=== PATIENT | female | born 1940 | race Caucasian/White ===

== ENCOUNTER → 2021-08-22 13:03 | Outpatient (BNVA) | payer MEDICARE, SELFPAY | PROVIDERS: PCP Family Medicine; Referring Provider Family Medicine; Visit Provider Internal Medicine Cardiovascular Disease | DX: R00.2 Palpitations (principal); R07.89 Other chest pain; J45.909 Unspecified asthma, uncomplicated | CPT/HCPCS: 93005; 99202 ==

== ENCOUNTER → 2021-09-27 09:32 | Outpatient (BNVA) | payer MEDICARE, SELFPAY | PROVIDERS: PCP Internal Medicine; Visit Provider Internal Medicine Pulmonary Disease | DX: J45.909 Unspecified asthma, uncomplicated (principal); Z91.09 Other allergy status, other than to drugs and biological substances | CPT/HCPCS: 99202 ==

== ENCOUNTER 2022-05-01 11:04 | Outpatient (REF) | payer MEDICARE, SELFPAY ==
--- NOTE | 2022-05-01 11:59 | PFT_ITS ---
FLOWS: FEV1 109% of predicted at 1.66 L. FVC 104% of predicted at 2.15 L. FEV1 to FVC ratio of 0.77. No bronchodilator response. LUNG VOLUMES: Total lung capacity 113% of predicted at 5.05 L. Residual volume 121% of predicted at 2.72 L. Slow vital capacity 105% of predicted at 2.32 L. Expiratory reserve volume 48% of predicted at 0.15 L. Diffusion capacity is normal. IMPRESSION: No obstructive or restrictive ventilatory defect. Increased residual volume suggests air trapping. Decreased expiratory reserve volume suggests extrathoracic restriction, likely secondary to abdominal obesity. Jim Watson MD AP/MODL / [id number]
== END 2022-05-01 11:05 | disposition home or self-care (01) ==
LOC: HO.RESP 11:04
PROVIDERS: PCP Internal Medicine; Visit Provider Internal Medicine Pulmonary Disease
DX: J45.909 Unspecified asthma, uncomplicated (principal)
CPT/HCPCS: 94060; 94727; 94729

== ENCOUNTER → 2022-05-09 10:18 | Outpatient (BNVA) | payer MEDICARE, SELFPAY | PROVIDERS: PCP Internal Medicine; Visit Provider Internal Medicine Pulmonary Disease | DX: J45.909 Unspecified asthma, uncomplicated (principal); Z91.09 Other allergy status, other than to drugs and biological substances | CPT/HCPCS: 99212 ==

== ENCOUNTER → 2022-10-31 10:13 | Outpatient (BNVA) | payer MEDICARE, SELFPAY | PROVIDERS: PCP Internal Medicine; Visit Provider Internal Medicine Pulmonary Disease | DX: J45.40 Moderate persistent asthma, uncomplicated (principal); Z91.09 Other allergy status, other than to drugs and biological substances | CPT/HCPCS: 99212 ==

== ENCOUNTER 2023-06-17 10:23 | Outpatient (AMB) | payer MEDICARE, SELFPAY ==
--- NOTE | 2023-06-17 10:26 | MHC.OFFVIS ---
Intake Vital Signs 06/17/23 10:28 Height 5 ft 1 in Weight 154 lb 5.177 oz BMI 29.2 BP 140/64 H Blood Pressure Location Rt brachial Position Sitting Pulse 63 Pulse Oximetry (%) 100 Oxygen Delivery Method Room Air Intake Visit Reasons: Asthma Allergies No Known Allergies Allergy (Verified 06/17/23 10:32) HPI Asthma HPI Details 82-year-old lady, former minimal smoker, quit 40 years ago,? followed for moderate persistent asthma and environmental allergies with asthma after the last office visit patient was switched to Trelegy, however she has not received it in continue to use Advair with suboptimal control of his symptoms. She denies any recent exacerbations. [facility] Surgical History (Updated 08/22/21 @ 13:24 by ARA Ulloa) H/O eye surgery Family History (Updated 08/22/21 @ 13:25 by ARA Ulloa) Mother Alzheimer disease Diabetes Father Diabetes HTN (hypertension) Sister HTN (hypertension) Diabetes Brother No problems noted. Social History (Updated 08/22/21 @ 13:25 by ARA Ulloa) Alcohol intake: never Patient Tobacco Use Status: Former Tobacco user Quit Date: 1989 Smoked: 15 +/- Review of Systems Const Denies daytime sleepiness, Denies excessive sweating, Denies fatigue, Denies fever(s), Denies lethargy, Denies malaise, Denies night sweats, Denies snoring and Denies weight loss Eyes Denies blurry vision and Denies itchy eyes ENT Denies nasal congestion, Denies post nasal drip, Denies sinus pain, Denies sinus pressure and Denies other ( Thrush) Card Denies chest pain, Denies pedal edema, Denies dyspnea, Denies orthopnea and Denies paroxysmal nocturnal dyspnea Resp Denies cough, Denies hemoptysis, Denies excessive phlegm production, Denies dyspnea, Denies snoring and Denies wheezing GI Denies abdominal pain and Denies heartburn Musc Denies myalgias, Denies arthralgias and Denies joint swelling Skin/Breast Denies rash Neuro Denies memory loss and Denies seizure-like activity Psych Denies abnormal sleep pattern, Denies anxiety and Denies memory loss Endo Denies excessive sweating, Denies fatigue and Denies heat intolerance Conor/Lymph Denies easy bruising Aller/Immun Denies itchy eyes, Denies seasonal rhinorrhea and Denies wheezing Physical Exam Vital Signs: Last Vital Signs Pulse 63 06/17/23 10:28 BP 140/64 H 06/17/23 10:28 Pulse Ox 100 06/17/23 10:28 Oxygen Delivery Method Room Air 06/17/23 10:28 BMI result Body Mass Index 29.2 Const General: no acute distress and alert Nutritional Appearance: not obese Orientation/consciousness: Other orientation findings ( oriented) HEENT Head: Yes atraumatic Eyes General: appearance normal, both eyes and all related structures Sclerae: sclerae normal EOM: EOMs intact bilaterally Neck Neck: Yes supple Lymphatic: no lymphadenopathy noted Resp Effort & Inspection: normal respiratory effort and no use of accessory muscles Auscultation: clear to auscultation bilaterally Cardio Rate: regular rate Rhythm: regular rhythm Heart sounds: no gallops, no murmurs and no rubs Skin General skin exam: other ( warm) Extrem General: No clubbing, No cyanosis and No edema Assessment & Plan Assessment & Plan (1) Asthma: Code(s): J45.909 - Unspecified asthma, uncomplicated Plan: Suboptimally controlled on Advair. Switch to Trelegy. Continue albuterol MDI. (2) Environmental allergies: Code(s): Z91.09 - Other allergy status, other than to drugs and biological substances Plan: Controlled on Singulair and loratadine. Continue current regimen. Medications: Refilled dgxigexgeft-eohabygdx-xgljdfsg 200-62.5-25 mcg (Trelegy Ellipta) 1 inh inhalation DAILY 1 ea 6RF 30 days Coding Level of Care Code Est Pt Level 4 (56985) Diagnoses Asthma J45.909 Environmental allergies Z91.09
[2023-06-17 10:28] VITALS: BP 140/64; PULSE 63; O2SAT 100; BMI 29.2
== END 2023-06-17 10:54 | disposition home or self-care (01) ==
PROVIDERS: PCP Internal Medicine; Visit Provider Internal Medicine Pulmonary Disease
DX: J45.909 Unspecified asthma, uncomplicated (principal); Z91.09 Other allergy status, other than to drugs and biological substances
CPT/HCPCS: 99214

== ENCOUNTER → 2023-06-17 10:23 | Outpatient (BNVA) | payer MEDICARE, SELFPAY | PROVIDERS: Visit Provider Internal Medicine Pulmonary Disease | DX: J45.909 Unspecified asthma, uncomplicated (principal); Z91.09 Other allergy status, other than to drugs and biological substances | CPT/HCPCS: 99212 ==

== ENCOUNTER 2023-10-09 11:42 | Outpatient (REF) | payer MEDICARE, SELFPAY ==
[2023-10-09 15:16] LABS: Alanine Aminotransferase 16 U/L (0-31); Albumin Level 3.6 g/dL (3.5-5.0); Alkaline Phosphatase 84 U/L (39-117); Anion Gap 13 (12-20); Aspartate Amino Transferase 19 U/L (5-31); Bilirubin Total 0.5 mg/dL (0.0-1.0); Blood Urea Nitrogen 23 mg/dL (9-16); Calcium 9.6 mg/dL (8.4-10.2); Carbon Dioxide 24 mmol/L (22-29); Chloride 108 mmol/L (96-108); Cholesterol 124 mg/dL (<200); Estimated Glomerular Filt Rate 47; Glucose Fasting 166 mg/dL (60-99); HDL Cholesterol 50 mg/dL (>40); LDL Cholesterol Calculated 61 mg/dL (<100); Potassium 4.7 mmol/L (3.3-5.1); Sodium 140 mmol/L (135-145); Total Protein 7.7 g/dL (6.5-8.0); Triglycerides 69 mg/dL (<150)
[2023-10-09 15:32] LABS: TSH reflex Free T4 3.81 uIU/mL (0.32-4.0)
== END 2023-10-09 11:43 | disposition home or self-care (01) ==
LOC: HO.CHCLDS 11:42
PROVIDERS: Visit Provider Internal Medicine
DX: E11.65 Type 2 diabetes mellitus with hyperglycemia (principal); Z79.4 Long term (current) use of insulin
CPT/HCPCS: 36415; 80053; 80061; 84443

== ENCOUNTER 2024-12-07 10:50 | Outpatient (AMB) | payer MEDICARE, SELFPAY ==
[2024-12-07 10:55] VITALS: BP 116/78; PULSE 72
--- NOTE | 2024-12-07 10:55 | A.OFFVIS_ITS ---
Vital Signs 12/07/24 10:55 Height 5 ft 1 in BMI Reason not done Patient refused/unable BP 116/78 Blood Pressure Location Rt brachial Position Sitting Pulse 72 Pulse Source Pulse Oximeter Intake Visit Reasons: Type 2 DM Intake Note: NEW Patient presents today to establish treatment for Type 2 Diabetes Mellitus: Last Diabetic eye exam was on: 06/18/2024 Last Podiatry exam was on: Patient does not see a Turf Grower Most recent HbA1c: DUE Random Glucose- 304 mg/dL, Today Art Framing Manager Required: No Art Framing Manager Name: Son Accompanied by: Self / Same As Patient Allergies No Known Allergies Allergy (Verified 12/07/24 10:56) [facility] Surgical History (Updated 08/22/21 @ 13:24 by ARA Ulloa) H/O eye surgery Family History (Updated 08/22/21 @ 13:25 by ARA Ulloa) Mother Alzheimer disease Diabetes Father Diabetes HTN (hypertension) Sister HTN (hypertension) Diabetes Brother No problems noted. Social History (Updated 08/22/21 @ 13:25 by ARA Ulloa) Alcohol intake: never Patient Tobacco Use Status: Former Tobacco user Years Smoked: 15 +/- Physical Exam Vital Signs: Last Vital Signs Pulse 72 12/07/24 10:55 BP 116/78 12/07/24 10:55 Results Reviewed Results Reviewed: Laboratory Last Values Glucose (Clinic) 304 mg/dL (60-115) H 12/07/24 11:13 Assessment & Plan Assessment & Plan Orders: Orders AMB Hemoglobin A1c Today E11.9 - Type 2 diabetes mellitus without complications Coding
--- NOTE | 2024-12-07 11:02 | A.OFFVIS_ITS ---
Vital Signs 12/07/24 10:55 Height 5 ft 1 in BMI Reason not done Patient refused/unable BP 116/78 Blood Pressure Location Rt brachial Position Sitting Pulse 72 Pulse Source Pulse Oximeter Intake Visit Reasons: Type 2 DM Intake Note: NEW Patient presents today to establish treatment for Type 2 Diabetes Mellitus: Last Diabetic eye exam was on: 06/18/2024 Last Podiatry exam was on: Patient does not see a Mast Maker Most recent HbA1c: 7.9%, 12/07/2024 Random Glucose- 304 mg/dL, Today Hyperbaric Tech Required: No Accompanied by: Son Allergies No Known Allergies Allergy (Verified 12/07/24 10:56) HPI Comments Details: Son in law used for hematology nurse. [age] YO female who is seen in consultation for TDM at the request of PCP. Most recent A1C 12/07/24 7.9% 8.4% 09/2024. Initially diagnosed with T2DM in her 40's, had pre diabetes in her 30's Was initially started on treatment with oral agents then changed to mdi Current regimen VGO 20 insulin patch pump Humalog brk 2 clicks lunch 3 clicks supper 3 clicks snack 1 click Checks sugars 3 times daily avg 276 Has one low of 38 when she accidentally took 2 sets of 2 clicks for breakfast numbers in reasonable range throughout the day each night consistently over 300 before bedtime. Reports low sugars had one this two week period after accidentally taking 2 dose of insulin Treats lows with oj Family history of T2DM in mother, father, sibling No retinopathy:Has eyes checked yearly, last eye exam 05/2024 Has neuropathy, has tingling no pain or cramping sees podiatry no nephropathy, on MALISSA microalbumin 3.0 Denies HLD, not on statin. Last LDL [] as measured on []. Denies CAD. Has tremors Diet: Balanced Weight: stable Has had diabetes education. [facility] Medical History (Updated 12/07/24 @ 11:41 by Angela Altamirano NP) Type 2 diabetes mellitus Surgical History (Updated 08/22/21 @ 13:24 by ARA Ulloa) H/O eye surgery Family History (Updated 08/22/21 @ 13:25 by ARA Ulloa) Mother Alzheimer disease Diabetes Father Diabetes HTN (hypertension) Sister HTN (hypertension) Diabetes Brother No problems noted. Social History (Updated 08/22/21 @ 13:25 by ARA Ulloa) Alcohol intake: never Patient Tobacco Use Status: Former Tobacco user Years Smoked: 15 +/- Physical Exam Vital Signs: Last Vital Signs Pulse 72 12/07/24 10:55 BP 116/78 12/07/24 10:55 Absence of Cushingoid features. Absence of acromegalic features. Neck exam reveals nl size thyroid about 15 gms. No thyroid nodules palpable. No carotid bruits present. Lungs CTA. Heart S1 S2, Reg R/R. No M/R/ G. Skin exam reveals absence of vitiligo or acanthosis nigricans. Abdominal exam reveals Soft NT/ND with NA BS. No organomegaly present. Const Other: Absence of Cushingoid features. Absence of acromegalic features. Neck exam reveals nl size thyroid about 15 gms. No thyroid nodules palpable. Heart S1 S2, Reg R/R. No M/R G. Skin exam reveals absence of vitiligo or acanthosis nigricans. tremor intermittent left arm Visual exam of foot performed. No ulcerations or open lesions. No inter digit maceration or fissuring. No onychomycosis, no callouses. Sensation intact to monofilament exam. Vibratory sensation is normal with 128 Hz tuning fork. good cap refill Neck Other: . Extrem Other: Visual exam of foot performed. No ulcerations or open lesions. No onchomycosis, no callouses.Pulses 2 + distally Sensation intact to monofilament exam. Vibratory sensation sensed is intact with 128 Hz tuning fork Results AMB Hemoglobin A1c AMB Hemoglobin A1c 7.9 % Last Edit by ARA Mo on 12/07/24 11:24 Results Reviewed Results Reviewed: Laboratory Last Values Glucose (Clinic) 304 mg/dL (60-115) H 12/07/24 11:13 Hgb A1c (Clinic) 7.9 % (4.0-6.0) H 12/07/24 11:00 Assessment & Plan Assessment & Plan (1) Type 2 diabetes mellitus: Code(s): E11.9 - Type 2 diabetes mellitus without complications Category: Medical Plan: 84-year-old type 2 diabetic on a V-Go patch pump. Glucose readings before bedtime are consistently above 300. Continue same dose of medication with the exception of take 4 clicks of insulin was supper instead of 3. Importance of not dosing twice before the meal. She reports she had never done this in the past. Recommended glucose sensor which she declined The patient had an opportunity to ask questions regarding treatment plan. The patient expressed understanding and agreement with the above treatment plan. The patient is aware they should contact our office by phone for worsening glucose readings or for any low blood sugars which may warrant a change in diabetes medication. Compliance is encouraged with medications and any followup testing/consults which may have been ordered. Orders: Orders AMB Hemoglobin A1c Today E11.9 - Type 2 diabetes mellitus without complications Patient Instructions: Check your feet daily looking for any signs of infection, drainage, redness, ulceration and seek medical attention if this occurs. Break in shoes gradually and do not wear open-toed shoes or walk stocking footed or barefooted. Take 15 carb carbohydrate grams to treat a low sugar (3-4 glucose tablets, half a glass of juice or 15 carbohydrate grams of soft candy such as gummie snacks). Recheck your sugar in 15 minutes and re-treat again with 15 carbohydrate grams if low or still with symptoms. Do not drive a car or operate machinery if you do not know what your blood sugar is, if it is low or in excess of 300. Coding Level of Care Code New Pt Level 5 (05685) Complex EM visit Add On G2211 Diagnoses Type 2 diabetes mellitus E11.9 Time Spent (min) 45 Comment Time spent reviewing labs/provider notes, face to face, chart doc
[2024-12-07 11:18] LABS: Glucose, Whole Blood 304 mg/dL (60-115)
--- OUTSIDE RECORDS SUMMARY | 2024-12-07 12:07 | XMS_ITS | Encounter Summary ---
Author Organization [employer] Address [address] [place] [address] 7 [place] [address] Care Team Providers Care Antenna Rigger Name Role Phone Bob Ricks MD Primary Care Prov ider Reason for Visit * Reason Comments Med Refill Encounter Details Date Type Department Care Team ([facility] st Contact Info) Description 03/13/2023 Refill [facility] CHC MED & PEDS [address] [place], [place] [phone] Bob Ricks MD [address] [place] [address] Social History Tobacco Use Types Packs/Day Years Used Date Smoking Tobacco: Never Assessed Depression Answer Date Recorded Patient Health Questionnaire-9 Score 6 02/07/2023 Depression Answer Date Recorded Patient Health Questionnaire-2 Score 6 02/07/2023 Comments Unknown Sex and Gender Information Value Date Recorded Sex Assigned at Female 08/26/2022 10:36 AM EDT Legal Sex Female 10:36 AM EDT Gender Identity Female 08/26/2022 10:36 AM EDT Sexual Orientation Straight 08/26/2022 10 :36 AM EDT documented as of this encounter Miscellaneous Notes * Telephone Encounter - Geraldine Whatley LPN - 03/27/2023 2:52 PM EDT documented in this encounter Plan of Treatment Not on file documented as of this encounter Visit Diagnoses Not on filedocumented in this encounter Additional Health Concerns Assessment Noted Time PHQ-9 Depression Total Score: 6 02/08/20 10:49 AM EDT documented as of this encounter Care Teams Antenna Rigger Relationship Specialty Start Date End Date Bob Ricks MD [address] [place] [id number] PCP - General Internal Medicine 11/18/19 documented as of this encounter
--- OUTSIDE RECORDS SUMMARY | 2024-12-07 12:07 | XMS_ITS | Encounter Summary ---
Author Organization [employer] Address [address] [facility] 7t [place] [address] Care Team Providers Care Cloth Designer Name Role Phone Bob Ricks MD Primary Care Prov ider Encounter Details Date Type Department Care Team (Latest Contact Info) Description 11/24/2024 Travel Social History Tobacco Use Types Packs/Day Years Used Date Smoking Tobacco: Former Cigarettes 1955 Smokeless Tobacco: Never Alcohol Use Standard Drinks/Week Comments Never 0 (1 standard drink = 0.6 oz pur e alcohol) Depression Answer Date Recorded Patient Health Questionnaire-9 Score 6 02/07/2023 Housing Stability Answer Date Recorded What is your housing situation today? I have francoise be 08/11/[address] you li ve. Do you have problems with any of the following? None of the above 08/11/2023 Food Insecurity Answer Date Recorded Within the past 12 months, y ou worried that your food would run out before you got money to buy more: Never True 08/11/2023 Within the past 12 months,th e food you bought just didn't last and you didn't have enough money to get more: Never True Transportation Answer Date Recorded In the past 12 months, has l ack of transportation kept you from medical appts, meetings, work or from getting things needed for daily living? No 08/11/2023 Utilities Answer Date Recorded In the past 12 months, has t he electric, gas, oil or water company threatened to shut off services in your home? No 08/11/2023 Depression Answer Date Recorded Patient Health Questionnaire-2 Score 6 02/07/2023 Comments Unknown Sex and Gender Information Value Date Recorded Sex Assigned at Female 08/26/2022 10:36 AM EDT Legal Sex Female 10:36 AM EDT Gender Identity Female 08/26/2022 10:36 AM EDT Sexual Orientation Straight 08/26/2022 10 :36 AM EDT documented as of this encounter Plan of Treatment Not on file documented as of this encounter Visit Diagnoses Not on filedocumented in this encounter Additional Health Concerns Assessment Noted Time PHQ-9 Depression Total Score: 6 02/08/20 23 10:49 AM EDT documented as of this encounter Care Teams Cloth Designer Relationship Specialty Start Date End Date Bob Ricks MD [address] [place] [id number] PCP - General Internal Medicine 11/18/19 documented as of this encounter
--- OUTSIDE RECORDS SUMMARY | 2024-12-07 12:07 | XMS_ITS | Encounter Summary ---
Author Organization [employer] Address [address] [facility] 7t [place] [address] Care Team Providers Care Steel Post Installer Name Role Phone Bob Ricks MD Primary Care Prov ider Encounter Details Date Type Department Care Team ([facility] st Contact Info) Description 12/19/2023 Orders Only [facility] CHC MED & PEDS [address] [place], [place] [phone] Bob Ricks MD [address] [place], [place] [phone] Social History Tobacco Use Types Packs/Day Years [...] on file documented as of this encounter Procedures Procedure Name Priority Date/Time Associated Diagnosis Comments GLUCOSE, WHOLE BLOOD Routine 12/07/2024 11:13 AM EST documented in this encounter Results * (ABNORMAL) Glucose, Whole Blood (12/07/2024 11:13 AM EST) Glucose, Whole Blood 304(H) 60 - 115 mg/dL [facility] Comment:METER #: [id number] 5Testing performed in the Endocrinology Department [address] , [address], [facility]. 12/07/2024 11:1 3 AM EST 12/07/2024 11:17 AM EST us Generic External Data Provider LAB BLOOD ORDERAB LES Final Result [facility] [address] [place] [address] [phone] documented in this encounter Visit Diagnoses Not on filedocumented in this encounter Additional Health Concerns Assessment Noted Time PHQ-9 Depression Total Score: 6 02/08/20 23 10:49 AM EDT documented as of this encounter Care Teams Steel Post Installer Relationship Specialty Start Date End Date Bob Ricks MD [address] [place] [id number] PCP - General Internal Medicine 11/18/19 documented as of this encounter
--- OUTSIDE RECORDS SUMMARY | 2024-12-07 12:07 | XMS_ITS | Encounter Summary ---
Author Organization [employer] Address [address] [place] [address] 7 [place] [address] Care Team Providers Care Decision Support Analyst Name Role Phone Bob Ricks MD Primary Care Prov ider Reason for Visit * Reason Comments Med Refill Encounter Details Date Type Department Care Team ([facility] st Contact Info) Description 06/10/2023 Refill [facility] CHC MED & PEDS [address] [place] [address] Bob Ricks MD [address] [place] [address] Social History Tobacco Use Types Packs/Day Years [...] documented as of this encounter Care Teams Decision Support Analyst Relationship Specialty Start Date End Date Bob Ricks MD [address] [place] [address] PCP - General Internal Medicine 11/18/19 documented as of this encounter
--- OUTSIDE RECORDS SUMMARY | 2024-12-07 12:07 | XMS_ITS | Encounter Summary ---
Author Organization [employer] Address [address] [facility] 7 [place] [address] Care Team Providers Care Estimator Paperboard Boxes Name Role Phone Bob Ricks MD Primary Care Prov ider Reason for Visit * Reason Comments Med Refill Encounter Details Date Type Department Care Team ([facility] st Contact Info) Description 11/09/2024 Refill [facility] CHC MED & PEDS [address] [place], [place] [phone] Bob Ricks MD [address] [place] [address] Social History Tobacco Use Types Packs/Day Years [...] documented as of this encounter Care Teams Estimator Paperboard Boxes Relationship Specialty Start Date End Date Bob Ricks MD [address] [place] [id number] PCP - General Internal Medicine 11/18/19 documented as of this encounter
--- OUTSIDE RECORDS SUMMARY | 2024-12-07 12:07 | XMS_ITS | Encounter Summary ---
Author Organization [employer] Address [address] [facility] 7t [place] [address] Care Team Providers Care Mica Miner Name Role Phone Bob Ricks MD Primary Care Prov ider Reason for Visit * Reason Comments Med Refill Encounter Details Date Type Department Care Team ([facility] st Contact Info) Description 10/18/2024 Refill [facility] CHC MED & PEDS [address] [place], [place] [phone] Bob Ricks MD [address] [place] [address] Primary hypertension Social History Tobacco Use Types Packs/Day Years [...] documented as of this encounter Visit Diagnoses Diagnosis Primary hypertension Unspecified essential hypertension documented in this encounter Additional Health Concerns Assessment Noted Time PHQ-9 Depression Total Score: 6 02/08/20 23 10:49 AM EDT documented as of this encounter Care Teams Mica Miner Relationship Specialty Start Date End Date Bob Ricks MD [address] [id number] PCP - General Internal Medicine 11/18/19 documented as of this encounter
--- OUTSIDE RECORDS SUMMARY | 2024-12-07 12:07 | XMS_ITS | Encounter Summary ---
Author Organization [employer] Address [address] [place] [address] 7 [place] [address] Care Team Providers Care Youth Agent Name Role Phone Bob Ricks MD Primary Care Prov ider Reason for Visit * Reason Comments Med Refill Encounter Details Date Type Department Care Team ([facility] st Contact Info) Description 06/29/2023 Refill [facility] CHC MED & PEDS [address] [place] [address] Bob Ricks MD [address] [place] [address] Social History Tobacco Use Types Packs/Day Years [...] documented as of this encounter Care Teams Youth Agent Relationship Specialty Start Date End Date Bob Ricks MD [address] [place] [address] PCP - General Internal Medicine 11/18/19 documented as of this encounter
--- OUTSIDE RECORDS SUMMARY | 2024-12-07 12:07 | XMS_ITS | Encounter Summary ---
Author Organization [employer] Address [address] [facility] 7t [place] [address] Care Team Providers Care Forming Yardage Control Operator Name Role Phone Bob Ricks MD Primary Care Prov ider Reason for Visit * Reason Onset Date Comments Appointment Request 09/10/2023 Encounter Details Date Type Department Care Team ([facility] Contact Info) Description 09/10/2023 Telephone [facility] [address] [place] [address] Bob Ricks MD [address] [place] [address] Appointment Request Social History Tobacco Use Types Packs/Day Years [...] encounter Miscellaneous Notes * Telephone Encounter - Pepper Nunes - 09/10/2023 9:53 AM EST Tc from daughter requesting PE appt, senior copywriter ask daughter and no concerns at the moment with health. Please call daughter for appt [phone] Yoruba speaker documented in this encounter Plan of Treatment Not on file documented as of this encounter Visit Diagnoses Not on filedocumented in this encounter Additional Health Concerns Assessment Noted Time PHQ-9 Depression Total Score: 6 02/08/20 23 10:49 AM EDT documented as of this encounter Care Teams Forming Yardage Control Operator Relationship Specialty Start Date End Date Bob Ricks MD [address] [place] [id number] PCP - General Internal Medicine 11/18/19 documented as of this encounter
--- OUTSIDE RECORDS SUMMARY | 2024-12-07 12:07 | XMS_ITS | Encounter Summary ---
Author Organization [employer] Address [address] [facility] 7t [place] [address] Care Team Providers Care Cabbage Salter Name Role Phone Bob Ricks MD Primary Care Prov ider Reason for Visit * Reason Comments Med Refill Encounter Details Date Type Department Care Team ([facility] st Contact Info) Description 08/04/2023 Refill [facility] MED & PEDS [address] [place], [place] [phone] Bob Ricks MD [address] [place] [address] Social History Tobacco Use Types Packs/Day Years Used Date Smoking Tobacco: Never Assessed Depression Answer Date Recorded Patient Health Questionnaire-9 Score 6 02/07/2023 Housing Stability Answer Date Recorded What is your housing situation today? I have francoise be 08/04/[address] you li ve. Do you have problems with any of the following? None of the above 08/04/2023 Food Insecurity Answer Date Recorded Within the past 12 months, y ou worried that your food would run out before you got money to buy more: Never True 08/04/2023 Within the past 12 months,th e food you bought just didn't last and you didn't have enough money to get more: Never True 06/2023 Transportation Answer Date Recorded In the past 12 months, has l ack of transportation kept you from medical appts, meetings, work or from getting things needed for daily living? No 08/04/2023 Utilities Answer Date Recorded In the past 12 months, has t he electric, gas, oil or water company threatened to shut off services in your home? No 08/04/2023 Depression Answer Date Recorded Patient Health Questionnaire-2 [...] documented as of this encounter Care Teams Cabbage Salter Relationship Specialty Start Date End Date Bob Ricks MD [address] [place] [id number] PCP - General Internal Medicine 11/18/19 documented as of this encounter
--- OUTSIDE RECORDS SUMMARY | 2024-12-07 12:07 | XMS_ITS | Encounter Summary ---
Author Organization [employer] Address [address] [facility] 7 [place] [address] Care Team Providers Care Abattoir Supervisor Name Role Phone Bob Ricks MD Primary Care Prov ider Reason for Referral * Consultation (Routine) - Authorized Specialty Diagnoses / Procedures Referred By Contac t Referred To Contact Endocrinology Diagnoses Type 2 diabetes mellitus with hyperglycemia, with long-term current use of insulin (CMS/HCC) Bob Ricks MD [address] [place] [address] Phone: tel: fax: [facility] [address] [place] [address] Phone: tel: fax: Referral ID Status Reason Start Date Expiration Date Visits Requested Visits Authorized [id number] Authorized Specialty Services Required 11/24/2024 11/24/2025 1 1 Encounter Details Date Type Department Care Team (Late st Contact Info) Description 11/24/2024 11:30 AM EST Telemedicine [facility] CHC MED & PEDS [address] [place] [address] Bob Ricks MD [address] [place] [address] Type 2 diabetes mellitus with peripheral neuropathy (CMS/HCC) (Primary Dx); Type 2 diabetes mellitus with hyperglycemia, with long-term current use of insulin (CMS/HCC); Primary hypertension Social History Tobacco Use Types Packs/Day Years Used Date Smoking Tobacco: Former Cigarettes 1 5 - 1954 Smokeless Tobacco: Never Alcohol Use Standard [...] AM EDT documented as of this encounter Last Filed Vital Signs Vital Sign Reading Time Taken Comments Blood Pressure 135/85 11/24/2024 1:58 PM EST Pulse 70 11/24/2024 1:58 PM EST Temperature - - Respiratory Rate - - Oxygen Saturation - - Inhaled Oxygen Concentration - - Weight - - Height - - Body Mass Index - - documented in this encounter Progress Notes * Bob Lafleur MD - 11/24/2024 11:30 AM EST Subjective Patient ID: Aparna Garcia is a 84 y.o. female who presents for No chief complaint on file.. Hypertension This is a chronic problem. Pertinent negatives include no chest pain, headaches, palpitations, peripheral edema or shortness of breath. Review of Systems Respiratory: Negative for shortness of breath. Cardiovascular: Negative for chest pain and palpitations. Neurological: Negative for headaches. Objective Physical Exam Neurological: General: No focal deficit present. Mental Status: She is oriented to person, place, and time. Psychiatric: Mood and Affect: Mood normal. Behavior: Behavior normal. Assessment/Plan Problem List Items Addressed This Visit Primary hypertension Controlled, continue lisinopril 20mg and diltiazem, keep low sodium diet, keep bp log, follow up in3 months Type 2 diabetes mellitus with hyperglycemia, with long-term current use of insulin ([facility]) On insulin pump, the endocrinology office she was attending is no longer accepting her insurance will send new referral Relevant Orders Referral to Endocrinology Type 2 diabetes mellitus with peripheral neuropathy ([facility]) - Primary documented in this encounter Miscellaneous Notes * Assessment & Plan Note - Bob Lafleur MD - 11/24/2024 1:58 PM ESTAssociated Problem(s): Type 2 diabetes mellitus with hyperglycemia, with long-term current use of insulin ([facility]) On insulin pump, the endocrinology office she was attending is no longer accepting her insurance will send new referral * Assessment & Plan Note - Bob Lafleur MD - 11/24/2024 1:57 PM ESTAssociated Problem(s): Primary hypertension Controlled, continue lisinopril 20mg and diltiazem, keep low sodium diet, keep bp log, follow up in3 months documented in this encounter Plan of Treatment Scheduled Referrals Name Type Priority Associated Diagnoses Order Schedule Referral to Endocrinology Outpatient Referral Routine Type 2 diabetes mellitus with hyperglycemia, with long-term current use of insulin (CMS/HCC) Expected: 11/24/2024 (Approximate), Expires: 11/24/2025 documented as of this encounter Visit Diagnoses Diagnosis Type 2 diabetes mellitus with peripheral neuropathy ([facility])- Primary Type 2 diabetes mellitus with hyperglycemia, with long-term current use of insulin ([facility]) Primary hypertension Unspecified essential hypertension documented in this encounter Additional Health Concerns Assessment Noted Time PHQ-9 Depression Total Score: 6 02/08/20 23 10:49 AM EDT documented as of this encounter Care Teams Abattoir Supervisor Relationship Specialty Start Date End Date Bob Ricks MD [address] [place] [id number] PCP - General Internal Medicine 11/18/19 documented as of this encounter
--- OUTSIDE RECORDS SUMMARY | 2024-12-07 12:07 | XMS_ITS | Clinical Summary ---
Author Organization [employer] Address [address] [facility] 7t [place] [address] Care Team Providers Care Sheet Metal Insulator Name Role Phone Bob Ricks MD Primary Care Prov ider Allergies No known active allergies Medications acetaminophen (Tylenol 8 Hour) 650 MG ER tablet Take 2 tablets by mouth every 8 (eight) hours. Active Calcium Carbonate-Vitam in D (Oyster Shell Calcium/D) 500-5 MG-MCG tablet Take 1 tablet by mouth in the morning. 11/18/19 Active cyanocobalamin (Vitamin B-12) 500 MCG tablet Take 1 tablet by mouth in the morning. Active fluticasone (Flonase Allergy Relief) 50 MCG/ACT nasal spray Administer 1-2 sprays into affected nostril(s) in the morning. 01/17/20 Active montelukast (Singulair) 10 MG tablet Take 1 tablet by mouth in the morning. 01/17/20 Active Multiple Vitamin (Multi-Vitamin) tablet Take 1 tablet by mouth in the morning. Active primidone (Mysoline) 50 MG tablet take 1/2 tablet by mouth at bedtime and increase weekly to 2 tablets at bedtime 01/17/20 22 Active FeroSul 325 (65 Fe) MG tabletIndicatio ns:Iron deficiency TAKE 1 TABLET(325 MG) BY MOUTH IN THE MORNING 90 tablet 3 03/09/20 24 Active aspirin 81 MG chewable tabletIndicatio ns:Primary hypertension CHEW AND SWALLOW 1 TABLET(81 MG) BY MOUTH IN THE MORNING 90 tablet 3 03/09/20 24 Active atorvastatin (Lipitor) 10 MG tablet TAKE 1 TABLET(10 MG) BY MOUTH IN THE MORNING 90 tablet 3 03/23/20 24 Active Advair HFA 230-21 MCG/ACT inhalerIndicati ons:Moderate persistent asthma without complication INHALE 2 PUFFS BY MOUTH TWICE DAILY IN THE MORNING AND IN THE EVENING 12 g 3 03/25/20 24 Active loratadine (Claritin) 10 MG tablet TAKE 1 TABLET BY MOUTH EVERY DAY 90 tablet 08/17/20 24 Active dilTIAZem CD (Cardizem CD) 120 MG 24 hr capsule TAKE 1 CAPSULE BY MOUTH EVERY DAY 90 capsule 1 11/01/19 25 Active omeprazole (PriLOSEC) [address] capsuleIndicati ons:Gastroesoph ageal reflux disease without esophagitis TAKE 1 CAPSULE(20 MG) BY MOUTH IN THE MORNING 90 capsule 11/01/19 25 Active lisinopril 20 MG tabletIndicatio ns:Primary hypertension TAKE 1 TABLET(20 MG) BY MOUTH DAILY 90 tablet 11/01/19 25 Active mirtazapine (Remeron) 15 MG tablet TAKE 1 TABLET BY MOUTH AT BEDTIME 90 tablet 11/01/19 25 Active albuterol 108 (90 Base) MCG/ACT inhaler INHALE 2 PUFFS INTO THE LUNGS EVERY 4 TO 6 HOURS NEEDED 8.5 g 1 11/09/19 25 Active albuterol 108 (90 Base) MCG/ACT inhaler INHALE 2 PUFFS INTO THE LUNGS EVERY 4 TO 6 HOURS NEEDED 8.5 g 1 07/22/20 24 025 Discontinued lisinopril 10 MG tabletIndicatio ns:Primary hypertension TAKE 1 TABLET(10 MG) BY MOUTH IN THE MORNING 90 tablet 08/17/20 24 025 Discontinued(T herapy completed) Active Problems Problem Noted Date Diagnosed Date Type 2 diabetes mellitus with peripheral neuropa thy 11/24/2024 Mixed stress and urge urinary incontinence 12/19 Assessment & Plan (12/19/2023 9:45 AM EST): Patient hx of mixed urine incontinence, she will benefit from rx for pull up diapers size medium, wipes and bed cover Left ear impacted cerumen 10/09/2023 Assessment & Plan (10/09/2023 12:28 PM EST): Will order debrox and will schedule a follow up with nurses in 1 week for ear lavage Osteopenia of multiple sites 10/09/2023 Assessment & Plan (10/09/2023 12:26 PM EST): Will order a dexa scan or follow up Primary hypertension 11/15/2022 Assessment & Plan (11/24/2024 1:57 PM EST): Controlled, continue lisinopril 20mg and diltiazem, keep low sodium diet, keep bp log, follow up in 3 months Assessment & Plan (03/23/2024 9:17 AM EDT): Not at target, will increase lisinopril to 20mg, keep bp log, keep low sodium diet, Patient reported a episode of chest pain yesterday, told her to visit er, she refused, risk were discussed, continue cardiology follow up Assessment & Plan (10/09/2023 12:23 PM EST): Controlled, reinforced low sodium diet, will leave on lisinopril 10mg and cardizem 120mg, keep bp monitoring Assessment & Plan (02/07/2023 1:43 PM EDT): Patient not monitoring her blood pressure daily, bp target <130/80, reinforced low sodium diet and exercise, lab order will be placed Assessment & Plan (11/15/2022 11:37 AM EST): Patient could not provide me today bp reading, she refers is controlled, but no bp log provided, reinforced low sodium diet Type 2 diabetes mellitus wit h hyperglycemia, with long-term current use of insulin 11/15/2022 Assessment & Plan (11/24/2024 1:58 PM EST): On insulin pump, the endocrinology office she was attending is no longer accepting her insurance will send new referral Assessment & Plan (03/23/2024 9:16 AM EDT): Followed by endocrinology, continue on v-go, last A1c elevated, insulin doise was increased on last endocrinology visit Eye exam done Assessment & Plan (10/09/2023 12:26 PM EST): Today A1c was 8.3% target <8.0%, she is on insulin pump, has endocrinology appointment on November, told to decrease daily carb intake, foot exam remarkable for bilateral mild onychomycosis and tinea, eye exam due in October they will arrange appointment. Assessment & Plan (02/07/2023 1:43 PM EDT): On insulin pump, followed by endocrinology, no changes will be made Assessment & Plan (11/15/2022 11:38 AM EST): On insulin pump, followed by endocrinology, reinforced low carb diet Mixed hyperlipidemia 11/15/2022 Assessment & Plan (10/09/2023 12:27 PM EST): New labs ordered for guidance of therapy Assessment & Plan (11/15/2022 11:38 AM EST): On statin therapy, has remained stable, no changes will be made Subclinical hypothyroidism 11/15/2022 Assessment & Plan (11/15/2022 11:39 AM EST): Will place order for labs for guidance of therapy Encounters Date Type Department Care Team Description 11/24/2024 11:30 AM EST Telemedicine [facility] CHC MED & PEDS [address] [place] [address] Bob Ricks MD Type 2 diabetes mellitus with peripheral neuropathy (CMS/HCC) (Primary Dx); Type 2 diabetes mellitus with hyperglycemia, with long-term current use of insulin (CMS/HCC); Primary hypertension 11/24/2024 Travel 11/23/2024 Telephone [facility] CH[facility] MED & PEDS [address] [place] [address] Bob Ricks MD chart prep 11/09/2024 Refill [facility] CH[facility] MED & PEDS [address] [place] [address] Bob Ricks MD 10/31/2024 Refill [facility] CH[facility] MED & PEDS [address] [place] [address] Bob Ricks MD Gastroesophageal reflux disease without esophagitis; Primary hypertension 10/30/2024 Refill [facility] CHC MED & PEDS [address] [place] [address] Lisa Hall MD 10/18/2024 Refill [facility] MED & PEDS [address] [place] [address] Bob Ricks MD Primary hypertension from Last 3 Months Immunizations Name Administration Dates Next Due Influenza High-dose Quadriva lent Preservative Free 10/09/2023,08/15/2022,08/17/2021 Influenza, High Dose Seasona l, Preservative Free 11/18/2019 Moderna Covid-19 Vaccine 12+ 10/23/2021,01/05/20 21,12/08/2020 Pneumococcal Conjugate PCV 20 10/09/2023 Tdap 11/18/2019 Zoster, Recombinant 08/15/2022 Social History Tobacco Use Types Packs/Day Years Used Date Smoking Tobacco: Former Cigarettes 1 - 1954 Smokeless Tobacco: Never Alcohol Use [...] Orientation Straight 08/26/2022 10 :36 AM EDT Last Filed Vital Signs Vital Sign Reading Time Taken Comments Blood Pressure 135/85 11/24/2024 1:58 PM EST Pulse 70 11/24/2024 1:58 PM EST Temperature 37.1 ??C (98.7 ??F) 10/09/2023 10:[address] Respiratory Rate 16 10/09/2023 10:47 AM EST Oxygen Saturation - - Inhaled Oxygen Concentration - - Weight 70.8 kg (156 lb) 10/09/2023 10:47 AM EST Height 151.8 cm (4' 11.75 ) 10/09/2023 10:47 AM EST Body Mass Index 30.72 10/09/2023 10:47 AM EST Plan of Treatment Health Maintenance Due Date Last Done Comments Eye Exam 1950 Alcohol/Substance Use Screening 1951 RSV Patients and Patients Aged 60 years or older (1 - 1-dose 75+ series) 2014 Zoster Vaccines (2 of 2) 10/10/2022 08/15/2022 Depression Screening 02/08/2024 02/07/2023, 02/08/20 23 SDOH Screening 02/08/2024 02/07/2023 Diabetes: Urine Protein Screening 04/21/2024 04/21/2023, 08/15/2022, 11/10/2020 COVID-19 Vaccine ( season) 2024 10/23/2021, 01/04/2021, 12/08/2020 Influenza Vaccine (#1) 2024 3, 08/15/2022, 08/17/2021, Additional history exists Diabetes: Hemoglobin A1C 09/14/2024 024, 03/10/2024, 10/09/2023, Additional history exists Diabetes: Foot Exam 10/09/2024 10/09/2023, 10/09/2023, 10/09/2023, Additional history exists Lipid Panel 10/09/2024 10/09/2023, 03/28, 08/15/2022, Additional history exists Tobacco Screening 03/23/2025 03/23/2024 DTaP/Tdap/Td Vaccines (2 - Td or Tdap) 11/18/2029 11/18/2019 Pneumococcal Vaccine: 50+ Years Completed 10/09/2023, 09/15/2020 HIB Vaccines Aged Out No longer eligi ble based on patient's age to complete this topic HPV Vaccines Aged Out No longer eligi ble based on patient's age to complete this topic Hepatitis A Vaccines Aged Out No long er eligible based on patient's age to complete this topic Hepatitis B Vaccines Aged Out No long er eligible based on patient's age to complete this topic IPV Vaccines Aged Out No longer eligi ble based on patient's age to complete this topic Meningococcal Vaccine Aged Out No alida himanshu eligible based on patient's age to complete this topic RSV under 20 months Aged Out No longe r eligible based on patient's age to complete this topic Rotavirus Vaccines Aged Out No longer eligible based on patient's age to complete this topic Procedures Procedure Name Priority Date/Time Associated Diagnosis Comments GLUCOSE, WHOLE BLOOD Routine 12/07/2024 11:13 AM EST LIPID PANEL, STANDARD Routine 10/09/2023 11:46 AM EST Type 2 diabetes mellitus with hyperglycemia, with long-term current use of insulin ([facility]) POCT GLYCATED HEMOGLOBIN, TOTAL Routine 10/09/2023 10:49 AM EST Type 2 diabetes mellitus with hyperglycemia, with long-term current use of insulin ([facility]) ALBUMIN, RANDOM URINE W/O CREATININE Routine 04/21/2023 10:58 AM EDT from Last 3 Months or Most Recently Relevant to Health Maintenance Results * (ABNORMAL) Glucose, Whole Blood (12/07/2024 11:13 AM EST) Glucose, Whole Blood 304(H) 60 - 115 mg/dL [facility] Comment:METER #: [id number] 5Testing performed in the Endocrinology Department [address], [address], [facility]. 12/07/2024 11:1 3 AM EST 12/07/2024 11:17 AM EST us Generic External Data Provider LAB BLOOD ORDERAB LES Final Result Performing Organization Address [facility]/ZIP Co de Phone Number [facility] [address] [place] [address] [phone] * Lipid Panel, Standard (10/09/2023 11:46 AM EST) Triglycerides 69 <150 mg/dL [facility] Comment:Desirable Triglyceri de: less than 150 mg/dLBorderline High Triglyceride 150-199 mg/dLHigh Triglyceride: 200-499 mg/dLVery High Triglyceride: greater than or equal to 5OO mg/dL Cholesterol 124 <200 mg/dL [facility] Comment:Desirable Cholestero l: less than 200 mg/dLBorderline High Cholesterol: 200-239 mg/dLHigh Cholesterol: greater than 239 mg/dL LDL Cholesterol Calculated 61 <100 mg/dL [facility] Comment:Desirable LDL: less than 100 mg/dLNear Optimal/Above Optimal LDL: 110- 129 mg/dLBorderline High LDL: 130-159 mg/dLHigh LDL: 160-189 mg/dLVery High LDL: greater than or equal to 190 mg/dL HDL Cholesterol 50 >40 mg/dL [facility] Comment:Desirable HDL: great er than 40 mg/dL Note: This HDL assay may give artificially low results in patients with liver disease. Blood Venous blood specimen / Unknown 10/09/2023 11:46 AM EST 10/09/2023 2:44 PM EST us Bob Lafleur MD LAB BLOOD ORDERABL ES Final Result Performing Organization Address [facility]/ZIP Co de Phone Number [facility] [address] [place] [address] [phone] * (ABNORMAL) POCT A1C (10/09/2023 10:49 AM EST) Hemoglobin A1C 8.3(A) 4.0 - 6.0 % QC Media Lot # [id number] Lot# Expiration Date Blood 10/09/2023 10:4 9 AM EST Bob Lafleur MD POINT OF CARE TEST ENTER/EDIT ORDERABLES Final Result * Albumin, Random Urine W/O Creatinine (04/21/2023 10:58 AM EDT) Albumin, Urine 8.2 See Note: mg/dL [facility] Comment: Reference Range: Reference Range Not established [facility] [place] [employer] Comment: The ADA defines abnormalities in albumin excretion as follows: Albuminuria Category ? Result (mcg/mg creatinine) Normal to Mildly increased ?<30 Moderately increased ?30-299 Severely increased ?> OR = 300 The ADA recommends that at least two of three specimens collected within a 3-6 month period be abnormal before considering a patient to be within a diagnostic category. 04/21/2023 10:5 8 AM EDT 04/21/2023 10:59 AM EDT Bob Lafleur MD LAB URINE ORDERABL ES Final Result [facility] [address] [place] [address] [employer] [place] [employer] [address] [place] [phone] from Last 3 Months or Most Recently Relevant to Health Maintenance Insurance [address] [place], [place] [id number]-SNP [facility] STANDARD Care Teams Sheet Metal Insulator Relationship Specialty Start Date End Date Bob Ricks MD [address] [place] [id number] PCP - General Internal Medicine 11/18/19
--- OUTSIDE RECORDS SUMMARY | 2024-12-07 12:07 | XMS_ITS | Encounter Summary ---
Author Organization [employer] Address [address] [facility] 7 [place] [address] Care Team Providers Care Job Setter Honing Name Role Phone Bob Ricks MD Primary Care Prov ider Reason for Visit * Reason Onset Date Comments chart prep 11/23/2024 Encounter Details Date Type Department Care Team ([facility] Contact Info) Description 11/23/2024 Telephone [facility] MED & PEDS [address] [place], [place] [phone] Bob Ricks MD [address] [place] [address] chart prep Social History Tobacco Use Types Packs/Day Years [...] encounter Miscellaneous Notes * Telephone Encounter - Phoebe Wagner MA - 11/23/2024 2:48 PM EST Chart Prep Labs: done Images: done Vaccines due: yes Referrals: complete Screenings: Foot Exam Overdue care gaps: A1C, Glucose, SDOH, PHQ-9 documented in this encounter Plan of Treatment Not on file documented as of this encounter Visit Diagnoses Not on filedocumented in this encounter Additional Health Concerns Assessment Noted Time PHQ-9 Depression Total Score: 6 02/08/20 23 10:49 AM EDT documented as of this encounter Care Teams Job Setter Honing Relationship Specialty Start Date End Date Bob Ricks MD [address] [place] [address] PCP - General Internal Medicine 11/18/19 documented as of this encounter
== END 2024-12-07 11:41 | disposition home or self-care (01) ==
PROVIDERS: PCP Internal Medicine; Visit Provider Nurse Practitioner Adult Health
DX: E11.9 Type 2 diabetes mellitus without complications (principal)
CPT/HCPCS: 99204; G2211

== ENCOUNTER → 2024-12-07 10:50 | Outpatient (BNVA) | payer MEDICARE, SELFPAY | PROVIDERS: PCP Internal Medicine; Visit Provider Nurse Practitioner Adult Health | DX: E11.9 Type 2 diabetes mellitus without complications (principal) | CPT/HCPCS: 82947; 83036; 99202 ==

== ENCOUNTER 2025-03-24 10:39 | Outpatient (AMB) | payer MEDICARE, SELFPAY ==
--- NOTE | 2025-03-24 08:01 | A.OFFVIS_ITS ---
Vital Signs 03/24/25 10:42 Height 5 ft 1 in BMI Reason not done Patient refused/unable BP 144/72 H Blood Pressure Location Rt brachial Position Sitting Pulse 60 Pulse Source Pulse Oximeter Oxygen Delivery Method Room Air Intake Visit Reasons: Type 2 DM Intake Note: Patient presents today for a follow-up on Type 2 Diabetes Mellitus: Last Diabetic eye exam was on: 06/18/2024 Last Podiatry exam was on: Patient does not see a Metal Window Screen Assembler Most recent HbA1c: 7.8%, 03/24/2025 Random Glucose- 139 mg/dL, Today Precision Dancer Required: Yes Precision Dancer Language: Sales And Management Trainee Services: Precision Dancer Offered & Declined Precision Dancer Name: SON Accompanied by: Son Allergies No Known Allergies Allergy (Verified 03/24/25 10:43) HPI Comments Details: Son in law used for sort operations supervisor. [age] YO female who is seen in consultation for TDM at the request of PCP. Most recent A1C 03/24/25: 12/07/24 7.9% 8.4% 09/2024. Initially diagnosed with T2DM in her 40's, had pre diabetes in her 30's Was initially started on treatment with oral agents then changed to mdi Current regimen VGO 20 insulin patch pump Humalog brk 2 clicks lunch 3 clicks supper 3 clicks snack 1 click Checks sugars 1-2 times daily Two [age] She was in the ER several days ago and had glucose readings of 400 because she did not use her V-Go to click for meals. She was treated for a bleeding hemorrhoid. Readings in the a.m. 108-207 later in the day in the 200s with a 1 low of 69 Treats lows with oj Family history of T2DM in mother, father, sibling No retinopathy:Has eyes checked yearly, last eye exam 05/2024 scheduled for this summer Has neuropathy, has tingling no pain or cramping except for chronic pain in ankle sees podiatry on a regular basis no nephropathy, on MALISSA microalbumin 3.0 05/2024 Denies HLD, not on statin. Last LDL ]67 several years ago Denies CAD. Has tremors Diet: Balanced Weight: stable Has had diabetes education. [facility] Medical History Type 2 diabetes mellitus Surgical History H/O eye surgery Family History Mother Alzheimer disease Diabetes Father Diabetes HTN (hypertension) Sister HTN (hypertension) Diabetes Brother No problems noted. Social History Alcohol intake: never Patient Tobacco Use Status: Former Tobacco user Years Smoked: 15 +/- Physical Exam Vital Signs: Last Vital Signs Pulse 60 03/24/25 10:42 BP 144/72 H 03/24/25 10:42 Oxygen Delivery Method Room Air 03/24/25 10:42 Const Other: Absence of Cushingoid features. Absence of acromegalic features. Neck exam reveals nl size thyroid about 15 gms. No thyroid nodules palpable. Heart S1 S2, Reg R/R. No M/R G. Skin exam reveals absence of vitiligo or acanthosis nigricans. No edema Visual exam of foot performed. No ulcerations or open lesions. No inter digit maceration or fissuring. No onychomycosis, no callouses. Sensation intact to monofilament exam. Vibratory sensation is normal with 128 Hz tuning fork. pulses positive Assessment & Plan Assessment & Plan (1) Type 2 diabetes mellitus: Code(s): E11.9 - Type 2 diabetes mellitus without complications Category: Medical Plan: 84-year-old with type 2 diabetes and neuropathy with the an A1c is 7.8% on a V- Go insulin patch. Given her age this is an appropriate A1c. I again counseled her today using her son-in-law as an sort operations supervisor that it would be recommended that she use a freestyle Liliane 3+ and that she will be safer given that she is getting continuous insulin to the V-Go patch. I again showed her a sample of the Liliane and reviewed that she would no longer need to check her blood sugars unless she had a low or reading that she needed to confirm. She again declined and agreed to test at least twice daily with her glucometer. The patient had an opportunity to ask questions regarding treatment plan. The patient expressed understanding and agreement with the above treatment plan. The patient is aware they should contact our office by phone for worsening glucose readings or for any low blood sugars which may warrant a change in diabetes medication. Compliance is encouraged with medications and any followup testing/consults which may have been ordered. We reviewed treating low sugars Orders: Orders AMB Hemoglobin A1c Today E11.9 - Type 2 diabetes mellitus without complications Lipid Panel Today E11.9 - Type 2 diabetes mellitus without complications Creatinine Urine Today E11.9 - Type 2 diabetes mellitus without complications Basic Metabolic Panel Fasting Today E11.9 - Type 2 diabetes mellitus without complications Microalbumin, Random (w Creat) Today E11.9 - Type 2 diabetes mellitus without complications Coding Level of Care Code Est Pt Level 4 (10515) Complex EM visit Add On G2211 Diagnoses Type 2 diabetes mellitus E11.9
[2025-03-24 10:42] VITALS: BP 144/72; PULSE 60
[2025-03-24 11:00] LABS: Glucose, Whole Blood 139 mg/dL (60-115)
== END 2025-03-24 11:21 | disposition home or self-care (01) ==
LOC: HO.ENCR 10:39
PROVIDERS: PCP Internal Medicine; Visit Provider Nurse Practitioner Adult Health
DX: E11.9 Type 2 diabetes mellitus without complications (principal)
CPT/HCPCS: 99214; G2211

== ENCOUNTER 2025-03-24 11:30 | Outpatient (REF) | payer MEDICARE, SELFPAY ==
[2025-03-24 13:01] LABS: Anion Gap 12 (12-20); Blood Urea Nitrogen 28 mg/dL (9-16); Calcium 9.4 mg/dL (8.4-10.2); Carbon Dioxide 25 mmol/L (22-29); Chloride 109 mmol/L (96-108); Cholesterol 116 mg/dL (<200); Estimated Glomerular Filt Rate 44; Glucose Fasting 161 mg/dL (60-99); HDL Cholesterol 43 mg/dL (>40); LDL Cholesterol Calculated 61 mg/dL (<100); Sodium 142 mmol/L (135-145); Triglycerides 62 mg/dL (<150)
[2025-03-24 13:59] LABS: Creatinine Urine 50.92 mg/dL; Microalbum/Creatinine Ratio Ur 19.6 ug/mg cr (<30)
[2025-03-24 15:03] LABS: Creatinine Urine 50.17 mg/dL
== END 2025-03-24 11:31 | disposition home or self-care (01) ==
LOC: HO.10HDL 11:30
PROVIDERS: Visit Provider Nurse Practitioner Adult Health
DX: E11.9 Type 2 diabetes mellitus without complications (principal)
CPT/HCPCS: 36415; 80048; 80061; 82043; 82570; 82947; 83036; 99212

== ENCOUNTER 2025-06-21 14:54 | Outpatient (AMB) | payer MEDICARE, SELFPAY ==
--- NOTE | 2025-06-21 14:58 | MHC.OFFVIS ---
Vital Signs 06/21/25 14:59 Height 5 ft 1 in BP 138/52 L Blood Pressure Location Lt brachial Position Sitting Pulse 71 Pulse Source Pulse Oximeter Pulse Oximetry (%) 98 Oxygen Delivery Method Room Air Intake Visit Reasons: T2DM Intake Note: Patient present today to follow up on Type 2 Diabetes Mellitus. Last Diabetic Eye exam: 06/18/2024 Last Podiatry Visit: Does not see a Manager Mechanical Random Glucose: 303 mg/dl Hgb A1C: 8.3% Environmental Services Assistant Required: Yes Environmental Services Assistant Language: Fuel Cell Systems Engineer Services: Environmental Services Assistant Offered & Declined Accompanied by: Grandchildren Allergies No Known Allergies Allergy (Verified 06/21/25 15:06) HPI Comments Details: This is my 1st visit with this 85-year-old female with a history of type 2 diabetes and asthma who presents for diabetic management. She was seen by my colleague on 03/24/2025. She is here with her grandsons. Declined certified court/medical interpreter. She was initially diagnosed with type 2 diabetes in her 40s. She has a family history of type 2 diabetes in her mother, father and sibling. She had rice beans and coffee with creamer before the appointment. POC 303. Denies symptoms of hyperglycemia. Current regimen VGO-20 insulin patch: Lispro Two clicks before breakfast, 3 clicks before lunch, 3 clicks before dinner and 1 click before snacks She checks her blood sugar 1-2 times daily. Her hemoglobin A1c is 8.3% today. Hypoglycemia: rarely, feels shaky and treats with OJ Complications: Neuropathy and sees Podiatry; nephropathy (CKD3b) Hyperlipidemia is treated with atorvastatin 10 mg daily. She is on lisinopril 20 mg daily for hypertension and renal protection. She has chronic tremors for years. They tell me she was evaluated by neurology in the past. Due for eye exam. ROS: Constitutional: No unexplained weight loss, fever, chills or increased fatigue Eyes: No vision changes Respiratory: No shortness of breath Cardiovascular: No chest pain Neurologic: per HPI Endocrine: No cold or heat intolerance. No polyuria or polydipsia. Physical exam: Constitutional: Alert, in no distress. Neck: Supple, Full range of motion. No lymphadenopathy. No palpable thyroid masses. Respiratory: Clear to auscultation. Cardiovascular: S1 S2 regular. No murmurs. Neurologic: Intermittent upper body tremors during the visit. Extremities: Warm and well perfused. No clubbing, cyanosis or edema. [facility] Medical History (Updated 06/21/25 @ 15:33 by DAVID Thakkar) Pure hypercholesterolemia Essential hypertension CKD stage 3b, GFR 30-44 ml/min Type 2 diabetes mellitus Surgical History H/O eye surgery Family History Mother Alzheimer disease Diabetes Father Diabetes HTN (hypertension) Sister HTN (hypertension) Diabetes Brother No problems noted. Social History Alcohol intake: never Patient Tobacco Use Status: Former Tobacco user Years Smoked: 15 +/- Physical Exam Vital Signs: Last Vital Signs Pulse 71 06/21/25 14:59 BP 138/52 L 06/21/25 14:59 Pulse Ox 98 06/21/25 14:59 Oxygen Delivery Method Room Air 06/21/25 14:59 Results AMB Hemoglobin A1c AMB Hemoglobin A1c 8.3 % Last Edit by ARA Chiang on 06/21/25 15:22 Results Reviewed Results Reviewed: Laboratory Last Values Glucose (Clinic) 303 mg/dL (60-115) H 06/21/25 15:10 Hgb A1c (Clinic) 8.3 % (4.0-6.0) H 06/21/25 15:21 Laboratory Tests 11/18/19 10/09/23 03/24/25 12:32 11:46 11:30 Plt Count 239 Creatinine Estimated GFR Hgb A1c (Clinic) 7.8 H Triglycerides Cholesterol LDL Cholesterol, Calc HDL Cholesterol TSH 3.81 Urine Creatinine Urine Microalbumin Microalb/Creat Ratio 03/24/25 11:40 Plt Count Creatinine 1.16 Estimated GFR 44 Hgb A1c (Clinic) Triglycerides 62 Cholesterol 116 LDL Cholesterol, Calc 61 HDL Cholesterol 43 TSH Urine Creatinine 50.17 Urine Microalbumin 10.0 Microalb/Creat Ratio 19.6 Assessment & Plan Assessment & Plan (1) Type 2 diabetes mellitus: Code(s): E11.9 - Type 2 diabetes mellitus without complications Category: Medical Qualifiers: Diabetes mellitus longterm insulin use: with intermediate card tender use Diabetes mellitus complication status: with neurologic complications Diabetes mellitus complication detail: with polyneuropathy Qualified Code(s): E11.42 - Type 2 diabetes mellitus with diabetic polyneuropathy; Z79.4 - care home (current) use of insulin Plan: In summary this is an 85-year-old female with type 2 diabetes. The patient's hemoglobin A1c is reasonable for her age at 8.3%. Continue current medication regimen. Advised patient she will need to follow with endocrinology MD due to continuous insulin delivery device. Recommended decreasing carbohydrates and sugars in her diet to avoid postprandial spikes. She is not interested in a CGM. (2) CKD stage 3b, GFR 30-44 ml/min: Code(s): N18.32 - Chronic kidney disease, stage 3b Category: Medical Plan: Continue lisinopril. Avoid nephrotoxic medications. Referred to Nephrology. (3) Essential hypertension: Code(s): I10 - Essential (primary) hypertension Category: Medical Plan: Blood pressure reasonably controlled for her age. Continue current regimen. (4) Pure hypercholesterolemia: Code(s): E78.00 - Pure hypercholesterolemia, unspecified Category: Medical Plan: LDL less than 100. Continue atorvastatin. Plan Follow up in 3 months for diabetic management. Orders: Orders AMB Hemoglobin A1c Today E11.9 - Type 2 diabetes mellitus without complications, Z13.9 - Encounter for screening, unspecified Coding Level of Care Code Est Pt Level 4 (43319) Complex EM visit Add On G2211 Diagnoses Type 2 diabetes mellitus with diabetic polyneuropathy, with long-term current use of insulin E11.42; Z79.4 Diabetes mellitus intermediate card tender insulin use: with intermediate card tender use Diabetes mellitus complication status: with neurologic complications Diabetes mellitus complication detail: with polyneuropathy CKD stage 3b, GFR 30-44 ml/min N18.32 Essential hypertension I10 Pure hypercholesterolemia E78.00
[2025-06-21 14:59] VITALS: BP 138/52; PULSE 71; O2SAT 98
[2025-06-21 15:15] LABS: Glucose, Whole Blood 303 mg/dL (60-115)
--- OUTSIDE RECORDS SUMMARY | 2025-06-21 15:48 | XMS_ITS | Encounter Summary ---
Author Organization [employer] Address [address] [facility] 7 [place] [address] Care Team Providers Care Tap Out Operator Name Role Phone Bob Ricks MD Primary Care Prov ider Reason for Visit * Reason Comments Med Refill Encounter Details Date Type Department Care Team ([facility] st Contact Info) Description 08/04/2023 Refill [facility] MED & PEDS [address] [place], [place] [phone] Bob Ricks MD [address] [place] [address] Social History Tobacco Use Types Packs/Day Years [...] documented as of this encounter Care Teams Tap Out Operator Relationship Specialty Start Date End Date Bob Ricks MD [address] [place] [id number] PCP - General Internal Medicine 11/18/19 documented as of this encounter
--- OUTSIDE RECORDS SUMMARY | 2025-06-21 15:48 | XMS_ITS | Encounter Summary ---
Author Organization [employer] Address [address] [facility] 7 [place] [address] Care Team Providers Care Healthcare Economics Manager Name Role Phone Bob Ricks MD Primary Care Prov ider Reason for Visit * Reason Comments Med Refill Encounter Details Date Type Department Care Team ([facility] st Contact Info) Description 04/30/2025 Refill [facility] MED & PEDS [address] [place], [place] [phone] Bob Ricks MD [address] [place] [address] Gastroesophageal reflux disease without esophagitis Social History Tobacco Use Types Packs/Day Years [...] as of this encounter Visit Diagnoses Diagnosis Gastroesophageal reflux disease without esophagitis Esophageal reflux documented in this encounter Additional Health Concerns Assessment Noted Time PHQ-9 Depression Total Score: 6 02/08/20 23 10:49 AM EDT documented as of this encounter Care Teams Healthcare Economics Manager Relationship Specialty Start Date End Date Bob Ricks MD [address] [place] [id number] PCP - General Internal Medicine 11/18/19 documented as of this encounter
--- OUTSIDE RECORDS SUMMARY | 2025-06-21 15:48 | XMS_ITS | Encounter Summary ---
Author Organization [employer] Address [address] [facility] 7 [place] [address] Care Team Providers Care Street Photographer Name Role Phone Bob Ricks MD Primary Care Prov ider Reason for Visit * Reason Onset Date Comments Med Refill 05/03/2025 Encounter Details Date Type Department Care Team ([facility] st Contact Info) Description 05/03/2025 Telephone [facility] CH[facility] MED & PEDS [address] [place], [place] [phone] Bob Ricks MD [address] [place] [address] Med Refill Social History Tobacco Use Types Packs/Day Years [...] encounter Miscellaneous Notes * Telephone Encounter - Elizabeth Harris LPN - 05/03/2025 3:43 PM EDT Medications needing refills pended to PCP. * Telephone Encounter - Marina Sheets - 05/03/2025 3:36 PM EDT TC from pt requesting medication refill. Medications needing refill : lisinopril 20 MG tablet atorvastatin (Lipitor) 10 MG tablet FeroSul 325 (65 Fe) MG tablet dilTIAZem CD (Cardizem CD) 120 MG 24 hr capsule mirtazapine (Remeron) 15 MG tablet omeprazole (PriLOSEC) [address] capsule To be sent to: [id number] - [place] - [address] [facility] documented in this encounter Plan of Treatment Not on file documented as of this encounter Visit Diagnoses Not on filedocumented in this encounter Additional Health Concerns Assessment Noted Time PHQ-9 Depression Total Score: 6 02/08/20 23 10:49 AM EDT documented as of this encounter Care Teams Street Photographer Relationship Specialty Start Date End Date Bob Ricks MD [address] [place] [address] [place] [id number] PCP - General Internal Medicine 11/18/19 documented as of this encounter
--- OUTSIDE RECORDS SUMMARY | 2025-06-21 15:48 | XMS_ITS | Encounter Summary ---
Author Organization [employer] Address [address] [facility] 7 [place] [address] Care Team Providers Care Outside Sales Account Manager Name Role Phone Bob Ricks MD Primary Care Prov ider Reason for Visit * Reason Onset Date Comments Appointment Request 09/10/2023 Encounter Details Date Type Department Care Team ([facility] st Contact Info) Description 09/10/2023 Telephone [facility] MEDICINE [address] [place] [address] Bob Ricks MD [address] [place] [phone] Appointment Request Social History Tobacco Use Types [...] EST Tc from daughter requesting PE appt, radio news writer ask daughter and no concerns at the moment with health. Please call daughter for appt [phone] Kazakh speaker documented in this encounter Plan of Treatment Not on file documented as of this encounter Visit Diagnoses Not on filedocumented in this encounter Additional Health Concerns Assessment Noted Time PHQ-9 Depression Total Score: 6 02/08/20 23 10:49 AM EDT documented as of this encounter Care Teams Outside Sales Account Manager Relationship Specialty Start Date End Date Bob Ricks MD [address] [place] [id number] PCP - General Internal Medicine 11/18/19 documented as of this encounter
--- OUTSIDE RECORDS SUMMARY | 2025-06-21 15:48 | XMS_ITS | Clinical Summary ---
Author Organization [facility] Address [address] [place] [address] Phone Care Team Providers Care Biometric Fingerprinting Technician Name Role Phone Physician, Pcp Unknown Primary Care Provider Benita vailable Allergies No known active allergies Encounters Date Type Department Care Team Description 03/21/2025 7:59 PM EDT - 03/22/2025 1:[address] [facility] [address] [place] [address] Bleeding external hemorrhoids (Primary Dx) Discharge Disposition: Home or Self Care from Last 3 Months Social History Tobacco Use Types Packs/Day Years Used Date Smoking Tobacco: Former Cigarettes Smokeless Tobacco: Never Comments Unknown Sex and Gender Information Value Date Recorded Sex Assigned at Not on file Legal Sex Female 3:49 AM EST Gender Identity Not on file Sexual Orientation Not on file Obstetrics History Last Filed Vital Signs Vital Sign Reading Time Taken Comments Blood Pressure 140/58 03/22/2025 1:53 AM EDT Pulse 65 03/22/2025 1:53 AM EDT Temperature 36.7 C (98.1 F) 03/22/2025 1:53 AM EDT Respiratory Rate 15 03/22/2025 1:53 AM EDT Oxygen Saturation 100% 03/22/2025 1:53 AM EDT Inhaled Oxygen Concentration - - Weight 72.1 kg (159 lb) 03/21/2025 8:34 PM EDT Height 152.4 cm (5') 03/21/2025 8:34 PM EDT Body Mass Index 31.05 03/21/2025 8:34 PM EDT Plan of Treatment Health Maintenance Due Date Last Done Comments Diabetes: Annual Foot Exam 1950 Diabetes: Annual Retina Eye Exam 1950 RSV Immunization Adult Patients (1 - 1-dose 75+ series) 2014 Zoster Vaccines (2 of 2) 10/10/2022 08/15/2022 COVID-19 Vaccine (4 - season) 2024 10/23/2021, 01/04/2021, 12/08/2020 Depression Screening 10/27/2024 Diabetes: Blood Sugar Control Test (HGBA1C) 03/21/2025 10/09/2023 Falls Risk Assessment 03/21/2025 Medicare Annual Wellness Visit 03/21/2025 Osteoporosis Screening (Bone Density Screening) 03/21/2025 Social Influencers of Health Screening 03/21/2025 Diabetes: Annual Urine Albumin-Creatinine Ratio (uACR) 06/14/2025 06/14/2024, 04/21/2023 Influenza Vaccine (#1) 2025 , 08/15/2022, 08/17/2021, Additional history exists Diabetes: Annual GFR (Glomerular Filtration Rate) 03/21/2026 03/21/2025, 06/14/2024 Hypertension/CHF/CAD Annual BMP Blood Test 03/21/2026 03/21/2025, 06/14/2024 Cholesterol Screening (Lipid Panel) 10/09/2028 10/09/2023 DTaP,Tdap,and Td Vaccines (2 - Td or Tdap) 11/18/2029 [...] on patient's age to complete this topic MMR Vaccines Aged Out No longer eligi ble based on patient's age to complete this topic Meningococcal ACWY Vaccine Aged Out N o longer eligible based on patient's age to complete this topic Meningococcal B Vaccine Aged Out No l onger eligible based on patient's age to complete this topic RSV Immunization Patients Under 20 months Aged Out No longer eligible based on patient's age to complete this topic Varicella Vaccines Aged Out No longer eligible based on patient's age to complete this topic Procedures Procedure Name Priority Date/Time Associated Diagnosis Comments COMPLETE BLOOD COUNT STAT 03/22/2025 12:36 AM EDT ECG ANNOTATED 03/22/2025 CT ABDOMEN PELVIS W CONTRAST STAT 03/21/2025 9:47 PM EDT ECG 12-LEAD STAT 03/21/2025 8:36 PM EDT CBC WITH AUTO DIFFERENTIAL STAT 03/21/2025 8:30 PM EDT PROTHROMBIN TIME WITH INR STAT 03/21/2025 8:30 PM EDT ACTIVATED PARTIAL THROMBOPLASTIN TIME STAT 03/21/2025 8:30 PM EDT TYPE AND SCREEN STAT 03/21/2025 8:30 PM EDT COMPREHENSIVE METABOLIC PANEL STAT 03/21/2025 8:30 PM EDT CBC AND DIFFERENTIAL STAT 03/21/2025 8:30 PM EDT from Last 3 Months Results * (ABNORMAL) CBC (03/22/2025 12:36 AM EDT) [facility] Signature WBC 7.3 4.8 - 10.8 K/mcL LAB HEMETOLOGY METHOD 03/22/2025 1:30 AM EDT [facility] RBC 3.80 3.80 - 4.80 M/mcL LAB HEMETOLOGY METHOD 03/22/2025 1:30 AM EDT [facility] Hemoglobin 11.1(L) 11.5 - 16.0 g/dL LAB HEMETOLOGY METHOD 03/22/2025 1:30 AM EDT [facility] Hematocrit 34.6(L) 35.0 - 47.0 % LAB HEMETOLOGY METHOD 03/22/2025 1:30 AM EDT [facility] MCV 92.3 79.0 - 98.0 FL LAB HEMETOLOGY METHOD 03/22/2025 1:30 AM EDT [facility] MCH 29.6 27.0 - 32.0 pcg LAB HEMETOLOGY METHOD 03/22/2025 1:30 AM EDT [facility] MCHC 32.1 32.0 - 37.0 g/dL LAB HEMETOLOGY METHOD 03/22/2025 1:30 AM EDT [facility] RDW 12.7 11.0 - 15.0 % LAB HEMETOLOGY METHOD 03/22/2025 1:30 AM EDT [facility] Platelets 263 130 - 400 K/mcL LAB HEMETOLOGY METHOD 03/22/2025 1:30 AM EDT [facility] MPV 10.7 7.0 - 11.0 FL LAB HEMETOLOGY METHOD 03/22/2025 1:30 AM EDT [facility] NRBC 0.0 <1.0 % LAB HEMETOLOGY METHOD 03/22/2025 1:30 AM EDT [facility] NRBC Absolute 0.00 <0.10 K/mcL LAB HEMETOLOGY METHOD 03/22/2025 1:30 AM EDT [facility] Blood Venous blood specimen / Unknown Venipuncture / Unknown 03/22/2025 12:36 AM EDT 03/22/2025 1:27 AM EDT Francisco J HERNANDEZ LAB BLOOD ORDERABLES Final Resul t [facility] [address] [place] [address], * ECG-Annotated (03/22/2025) us Provider Onbase ECG ORDERABLES Final Result * CT Abdomen Pelvis w Contrast (03/21/2025 9:47 PM EDT) Anatomical Region Laterality Modality Body Computed Tomogra phy 03/21/2025 11:0 0 PM EDT Impressions 03/21/2025 11:00 PM EDT No findings to explain symptoms. Possible cystitis. Nonemergent/incidental findings above. This document has been electronically signed by: Ruy Moreno MD on 03/21/2025 23:00:53 Narrative 03/21/2025 11:00 PM EDT INDICATION: RLQ Abdominal tenderness, GI Bleeding CT Abdomen and Pelvis W Contrast COMPARISON: None FINDINGS: Detail limited by artifacts. Normal liver. Normal spleen. Right renal cysts. Subcentimeter hypodensities in both kidneys, too small to accurately characterize. No hydronephrosis. Normal adrenal glands. Normal pancreas. Cholelithiasis. No CT evidence of acute cholecystitis. No biliary dilation. Colonic diverticulosis without evidence of acute diverticulitis. No mucosal thickening. No evidence of obstruction. Normal appendix. Mild diffuse bladder wall thickening. Unremarkable uterus. No ascites. No pneumoperitoneum. No lymphadenopathy. No acute fracture. No abdominal aortic aneurysm. Procedure Note Ruy Moreno MD - 03/21/2025 INDICATION: RLQ Abdominal tenderness, GI Bleeding CT Abdomen and Pelvis W Contrast COMPARISON: None FINDINGS: Detail limited by artifacts. Normal liver. Normal spleen. Right renal cysts. Subcentimeter hypodensities in both kidneys, toosmall to accurately characterize. No hydronephrosis. Normal adrenal glands. Normal pancreas. Cholelithiasis. No CT evidence of acute cholecystitis. No biliary dilation. Colonic diverticulosis without evidence of acute diverticulitis. No mucosal thickening. No evidence of obstruction. Normal appendix. Mild diffuse bladder wall thickening. Unremarkable uterus. No ascites. No pneumoperitoneum. No lymphadenopathy. No acute fracture. No abdominal aortic aneurysm. IMPRESSION: No findings to explain symptoms. Possible cystitis. Nonemergent/incidental findings above. This document has been electronically signed by: Ruy Moreno MD on 03/21/2025 23:00:53 Francisco J HERNANDEZ IMG CT PROCEDURES Final Result * ECG 12 lead (03/21/2025 8:36 PM EDT) Ventricular Rate ECG 77 BPM GEMUSE Atrial Rate 77 BPM GEMUSE P-R Interval 162 ms GEMUSE QRS Duration 74 ms GEMUSE Q-T Interval 374 ms GEMUSE QTc 423 ms GEMUSE P Wave [place] 77 degrees GEMUSE R [place] 64 degrees GEMUSE T [place] 57 degrees GEMUSE ECG Interpretation Normal sinus rhythm Normal ECG No previous ECGs available Confirmed by Parisa BECK JAMES ([id number]) on 03/22/2025 3:52:33 PM GEMUSE 03/21/2025 8:36 PM EDT 03/22/2025 3:52 PM EDT us Kendell Andrews MD ECG ORDERABLES Final Resul t GEMUSE * (ABNORMAL) CBC auto differential (03/21/2025 8:30 PM EDT) [facility] WBC 5.4 4.8 - 10.8 K/mcL LAB HEMETOLOGY METHOD 03/21/2025 8:41 PM EDT [facility] RBC 3.70(L) 3.80 - 4.80 M/mcL LAB HEMETOLOGY METHOD 03/21/2025 8:41 PM EDT [facility] Hemoglobin 10.9(L) 11.5 - 16.0 g/dL LAB HEMETOLOGY METHOD 03/21/2025 8:41 PM EDT [facility] Hematocrit 34.2(L) 35.0 - 47.0 % LAB HEMETOLOGY METHOD 03/21/2025 8:41 PM EDT [facility] MCV 93.4 79.0 - 98.0 FL LAB HEMETOLOGY METHOD 03/21/2025 8:41 PM EDT [facility] MCH 29.8 27.0 - 32.0 pcg LAB HEMETOLOGY METHOD 03/21/2025 8:41 PM [facility] MCHC 31.9(L) 32.0 - 37.0 g/dL LAB HEMETOLOGY METHOD 03/21/2025 8:41 PM [facility] RDW 12.8 11.0 - 15.0 % LAB HEMETOLOGY METHOD 03/21/2025 8:41 PM [facility] Platelets 226 130 - 400 K/mcL LAB HEMETOLOGY METHOD 03/21/2025 8:41 PM [facility] MPV 10.6 7.0 - 11.0 FL LAB HEMETOLOGY METHOD 03/21/2025 8:41 PM [facility] NRBC 0.0 <1.0 % LAB HEMETOLOGY METHOD 03/21/2025 8:41 PM [facility] NRBC Absolute 0.00 <0.10 K/mcL LAB HEMETOLOGY METHOD 03/21/2025 8:41 PM [facility] Neutrophils Relative 61.6 % LAB HEMETOLOGY METHOD 03/21/2025 8:41 PM [facility] Lymphocytes Relative 26.0 % LAB HEMETOLOGY METHOD 03/21/2025 8:41 PM [facility] Monocytes Relative 6.1 % LAB HEMETOLOGY METHOD 03/21/2025 8:41 PM [facility] Eosinophils Relative 5.0 % LAB HEMETOLOGY METHOD 03/21/2025 8:41 PM [facility] Basophils Relative 0.9 % LAB HEMETOLOGY METHOD 03/21/2025 8:41 PM [facility] Immature Granulocytes Relative 0.4 % LAB HEMETOLOGY METHOD 03/21/2025 8:41 PM [facility] Neutrophils Absolute 3.34 1.50 - 7.00 K/mcL LAB HEMETOLOGY METHOD 03/21/2025 8:41 PM EDT [facility] Lymphocytes Absolute 1.41 1.00 - 5.00 K/[facility] LAB HEMETOLOGY METHOD 03/21/2025 8:41 PM EDT [facility] Monocytes Absolute 0.33 0.20 - 1.00 K/[facility] LAB HEMETOLOGY METHOD 03/21/2025 8:41 PM EDT [facility] Eosinophils Absolute 0.27 0.00 - 0.50 K/[facility] LAB HEMETOLOGY METHOD 03/21/2025 8:41 PM EDT [facility] Basophils Absolute 0.05 0.00 - 0.20 K/[facility] LAB HEMETOLOGY METHOD 03/21/2025 8:41 PM EDT [facility] Immature Granulocytes Absolute 0.02 0.00 - 0.03 K/[facility] LAB HEMETOLOGY METHOD 03/21/2025 8:41 PM EDT [facility] Blood Venous blood specimen / Unknown Venipuncture / Unknown 03/21/2025 8:30 PM EDT 03/21/2025 8:38 PM EDT Kendell Andrews MD LAB BLOOD ORDERABLES Final Result [facility] [address] [place] [address], * Activated partial thromboplastin time (03/21/2025 8:30 PM EDT) aPTT 32.2 24.1 - 39.3 sec LAB COAGULATION METHOD 03/21/2025 8:49 PM EDT [facility] Blood Venous blood specimen / Unknown Venipuncture / Unknown 03/21/2025 8:30 PM EDT 03/21/2025 8:38 PM EDT Kendell Andrews MD LAB BLOOD ORDERABLES Final Result Performing Organization Address [facility]/ZIP Co de Phone Number [facility] [address] [place] [address], [place] [phone] * Prothrombin time with INR (03/21/2025 8:30 PM EDT) Protime 11.4 10.6 - 13.9 sec LAB COAGULATION METHOD 03/21/2025 8:49 PM EDT [facility] INR 0.9 LAB COAGULATION METHOD 03/21/2025 8:49 PM EDT [facility] Blood Venous blood specimen / Unknown Venipuncture / Unknown 03/21/2025 8:30 PM EDT 03/21/2025 8:38 PM EDT Kendell Andrews MD LAB BLOOD ORDERABLES Final Result Performing Organization Address [facility] de Phone Number [facility] [address] [place] [address], [place] [phone] * Type and screen (03/21/2025 8:30 PM EDT) Pathologist [facility]BO [facility] O 03/27/2025 10:48 AM EDT [facility] Rh Type Positive 03/27/2025 10:48 AM EDT [facility] Antibody Screen Negative 03/27/2025 10:48 AM EDT [facility] Blood Venous blood specimen / Unknown Venipuncture / Unknown 03/21/2025 8:30 PM EDT 03/21/2025 8:38 PM EDT Kendell Andrews MD LAB BLOOD BANK TEST ORDERAB LES Final Result Performing Organization Address [facility]/ZIP Co de Phone Number [facility] [address] [place] [address], [place] [phone] * (ABNORMAL) Comprehensive metabolic panel (03/21/2025 8:30 PM EDT) Sodium 137 133 - 145 mmol/L LAB CHEMISTRY METHOD 03/21/2025 9:12 PM [facility] Potassium 4.1 3.5 - 5.5 mmol/L LAB CHEMISTRY METHOD 03/21/2025 9:12 PM [facility] Chloride 106 96 - 110 mmol/L LAB CHEMISTRY METHOD 03/21/2025 9:12 PM [facility] CO2 25 21 - 32 mmol/L LAB CHEMISTRY METHOD 03/21/2025 9:12 PM [facility] Anion Gap 6 3 - 11 LAB CHEMISTRY METHOD 03/21/2025 9:12 PM [facility] Glucose 395(H) 70 - 100 mg/dL LAB CHEMISTRY METHOD 03/21/2025 9:12 PM [facility] BUN 23 5 - 25 mg/dL LAB CHEMISTRY METHOD 03/21/2025 9:12 PM [facility] Creatinine 1.21(H) 0.50 - 1.10 mg/dL LAB CHEMISTRY METHOD 03/21/2025 9:12 PM [facility] eGFR 44(L) >=60 mL/min/1. 73m2 LAB CHEMISTRY METHOD 03/21/2025 9:12 PM [facility] Comment:Calculation based on the Chronic Kidney Disease Epidemiology Collaboration (CKD-EPI) equation refit without adjustment for race. BUN/Creatinine Ratio 19.0 LAB CHEMISTRY METHOD 03/21/2025 9:12 PM [facility] Calcium 8.8 8.5 - 10.5 mg/dL LAB CHEMISTRY METHOD 03/21/2025 9:12 PM [facility] AST (SGOT) 18 10 - 42 unit/L LAB CHEMISTRY METHOD 03/21/2025 9:12 PM [facility] ALT (SGPT) 27 10 - 60 unit/L LAB CHEMISTRY METHOD 03/21/2025 9:12 PM EDT [facility] Alkaline Phosphatase 132(H) 42 - 121 unit/L LAB CHEMISTRY METHOD 03/21/2025 9:12 PM EDT [facility] Total Protein 7.1 6.0 - 8.0 g/dL LAB CHEMISTRY METHOD 03/21/2025 9:12 PM EDT [facility] Albumin 3.4 3.2 - 5.0 g/dL LAB CHEMISTRY METHOD 03/21/2025 9:12 PM EDT [facility] Total Bilirubin 0.3 0.0 - 1.4 mg/dL LAB CHEMISTRY METHOD 03/21/2025 9:12 PM EDT [facility] Blood Venous blood specimen / Unknown Venipuncture / Unknown 03/21/2025 8:30 PM EDT 03/21/2025 8:38 PM EDT us Kendell Andrews MD LAB BLOOD ORDERABLES Final Result [facility] [address] [place] [address], from Last 3 Months Insurance [employer] Care Teams Biometric Fingerprinting Technician Relationship Specialty Start Date End Date Physician, Pcp Unknown PCP - General 03/21/25
--- OUTSIDE RECORDS SUMMARY | 2025-06-21 15:48 | XMS_ITS | Encounter Summary ---
Author Organization [employer] Address [address] [place] [address] [address] [place] [address] Care Team Providers Care Space Technologist Name Role Phone Bob Ricks MD Primary Care Prov ider Reason for Visit * Reason Comments Med Refill Encounter Details Date Type Department Care Team ([facility] st Contact Info) Description 06/10/2023 Refill [facility] [address], [place] [id number] Bob Ricks MD [address] [place] [address] Social History Tobacco Use Types Packs/Day Years [...] documented as of this encounter Care Teams Space Technologist Relationship Specialty Start Date End Date Bob Ricks MD [address] [place] [address] PCP - General Internal Medicine 1/23/20 documented as of this encounter
--- OUTSIDE RECORDS SUMMARY | 2025-06-21 15:48 | XMS_ITS | Clinical Summary ---
Author Organization [facility] Address [address] [place] [id number] Phone Care Team Providers Care Surgical Assist Name Role Phone Bob Ricks MD Primary Care Prov ider Allergies Active Allergy Reactions Criticality Noted Date Comments Pollen Extracts 11/27/2023 Medications omeprazole (PRILOSEC) 20 MG capsule Take 20 mg by mouth daily. 10/29/19 24 Active mirtazapine (REMERON) 15 MG tablet Take 15 mg by mouth nightly at bedtime. 06/09/20 23 Active loratadine (CLARITIN) 10 mg tablet Take 1 tablet by mouth daily. 11/11/19 24 Active dilTIAZem (CARDIZEM CD) 120 MG 24 hr capsule Take 120 mg by mouth daily. 03/31/20 23 Active albuterol 90 mcg/actuation inhaler INHALE 2 PUFFS INTO THE LUNGS EVERY 4 TO 6 HOURS NEEDED 07/30/20 23 Active multivitamin per tablet Take 1 tablet by mouth every morning. Active lisinopril (PRINIVIL,ZES TRIL) 2.5 MG tablet Take 2.5 mg by mouth daily. Active montelukast (SINGULAIR) 10 mg tablet Take 10 mg by mouth nightly at bedtime. Active calcium citrate/vitam in D3 (CALCITRATE-V ITAMIN D ORAL) Take by mouth. Activ e PURE COMFORT SAFETY LANCETS 30 gauge MiscIndicatio ns:Type 2 diabetes mellitus with peripheral neuropathy Inject 1 each under the skin 3 (three) times a day before meals. 300 each 3 11/27/19 24 Active lisinopril (PRINIVIL,ZES TRIL) 20 MG tablet Take 20 mg by mouth daily. 06/10/20 24 Active TRELEGY ELLIPTA 200-62.5-25 mcg inhaler Inhale 1 puff into the lungs daily. 04/08/20 24 Active ADVAIR HFA 230-21 mcg/actuation inhaler Inhale 460 mcg/treatment of fluticasone into the lungs 2 (two) times a day. 05/03/20 24 Active ferrous sulfate 325 mg (65 mg platinum iron) tablet Take 325 mg by mouth daily with breakfast. 03/09/20 24 Active atorvastatin (LIPITOR) 10 MG tablet Take 10 mg by mouth daily. 06/12/20 24 Active aspirin 81 mg chewable tablet Take 81 mg by mouth daily. 03/09/20 24 Active ONETOUCH DELICA LANCETS 30 gauge MiscIndicatio ns:Type 2 diabetes mellitus with hyperglycemia , with long-term current use of insulin 1 each by Miscellaneous route 3 (three) times a day. 300 each 3 11/24/19 25 Active BD ALCOHOL SWABS PadMIndicatio ns:Type 2 diabetes mellitus with peripheral neuropathy USE DIRECTED FOUR TIMES DAILY 400 each 3 11/30/19 25 Active ONETOUCH ULTRA TEST Strp stripsIndicat ions:Type 2 diabetes mellitus with peripheral neuropathy USE DIRECTED THREE TIMES DAILY BEFORE MEALS 300 strip 3 02/01/20 25 Active insulin lispro (ADMELOG, HUMALOG) 100 unit/mL injection vialIndicatio ns:Type 2 diabetes mellitus with peripheral neuropathy INJECT 66 UNITS UNDER THE SKIN CONTINUOSLY V-GO 20 60 mL 05/11/20 25 Active sub-q insulin device, 20 unit (V-GO 20) DeviIndicatio ns:Type 2 diabetes mellitus with peripheral neuropathy USE DAILY TO DELIVER INSULIN 30 each 2 06/07/20 25 Active V-GO 20 DeviIndicatio ns:Type 2 diabetes mellitus with peripheral neuropathy Use 1 per day to deliver insulin 90 each 3 06/14/20 24 025 Discontinued Active Problems Problem Noted Date Diagnosed Date Thyroid nodule 06/14/2024 Assessment & Plan (06/14/2024 11:23 AM EDT): We are still waiting for old records. I recall patient having some nodules and might of had some temporary thyroid dysfunction in the past. No palpable nodule or thyromegaly on today's exam. Added TSH to labs. Will obtain old records Type 2 diabetes mellitus with peripheral neuropa thy 03/10/2024 Assessment & Plan (03/10/2024 12:54 PM EDT): Control is suboptimal based upon the patient's SMBG readings. No frequent or severe hypoglycemia. She had a fasting reading to 85 last week and started to feel shaky with this. She had some juice and ate breakfast and was fine. Her glucose levels are running high after breakfast and dinner. She has been taking 1 bolus click (2 units) with breakfast and 3 clicks (6 units) with dinner. After discussing what she is eating at meals and snacks, will increase her bolus clicks. Cannot increase her her V-go 20 to the V-go 30 due to the basal rate being too high and would cause her glucose levels to crash. She is going to work on the bolus clicks and see how her levels do. Continue to work on eating healthy and trying to be active. To call or message with any issues managing her glucose levels. Up to date with [facility]. Labs ordered halfway current use of insulin 11/27/2023 Osteopenia of multiple sites 10/09/2023 Overview (11/27/2023): Last Assessment & Plan: Will order a dexa scan or follow up Mixed hyperlipidemia 11/15/2022 Overview (11/27/2023): Last Assessment & Plan: New labs ordered for guidance of therapy Primary hypertension 11/15/2022 Overview (11/27/2023): Last Assessment & Plan: Controlled, reinforced low sodium diet, will leave on lisinopril 10mg and cardizem 120mg, keep bp monitoring Subclinical hypothyroidism 11/15/2022 Overview (11/27/2023): Last Assessment & Plan: Will place order for labs for guidance of therapy Type 2 diabetes mellitus wit h hyperglycemia, with long-term current use of insulin 11/15/2022 Overview (11/27/2023): Today A1c was 8.3% target <8.0%, she is on insulin pump, has endocrinology appointment on November, told to decrease daily carb intake, foot exam remarkable for bilateral mild onychomycosis and tinea, eye exam due in October they will arrange appointment. Assessment & Plan (06/14/2024 11:21 AM EDT): Poor control with average blood sugar 302 by SMBG. Fasting glucose close to target 120-150 while using V-Go 20. Very high blood sugars to the 300s to 500s by 9 PM. Last A1c 9.8% in February. No frequent or severe hypoglycemia. Patient is changing her V-Go different times of the day in the afternoon, suspect that at times she is running out of insulin which may explain the high numbers late p.m. besides having some carbohydrate rich snacks without bolusing. -Would keep the V-Go 20 for now. -Continue giving 2-3 clicks for scheduled meals. -Try giving 1-2 clicks to cover carbohydrate rich snacks/cereal with milk later in the day. -Labs today. -Reviewed symptoms, prevention and treatment of hypoglycemia. -Call if blood sugar below 70 or over 250 repeatedly. Assessment & Plan (11/27/2023 5:41 PM EST): Control suboptimal, but not unreasonable given age. No frequent or severe hypoglycemia. No pattern to BG readings to guide rx adjustment. Continue to work on eating healthy & keeping active, as able. To call or send in BG with problems with glycemic control. Up to date with ophtho. Foot & nail care appears ok (limited exam). BP under reasonable control. Rx sent. Will obtain records from [facility] and schedule follow up w/ DAVID Braun & Dr. Cote. Encounters Date Type Department Care Team Description 06/07/2025 Refill [facility] [address] [place] [address] Gillian Cote MD Medication Refill 05/09/2025 Refill [facility] [address] [place] [address] Gillian Cote MD Medication Refill from Last 3 Months Social History Tobacco Use Types Packs/Day Years Used Date Smoking Tobacco: Never Smokeless Tobacco: Never Tobacco Cessation:Counseling Given: Not Answered Alcohol Use Standard Drinks/Week Comments Never 0 (1 standard drink = 0.6 oz pur e alcohol) Education Answer Date Recorded Are you interested in more education? Not on mile e 06/20/2023 Are you concerned about learning? Not on file 06/20/2023 No 06/20/2023 No 06/20/2023 Digital Access Answer Date Recorded No 06/20/2023 No 06/20/2023 Reliable internet access at home? Not on file 06/20/2023 Device with a working camera? Not on file Comments Unknown Sex and Gender Information Value Date Recorded Sex Assigned at Not on file Legal Sex Female 11:04 AM EDT Gender Identity Not on file Sexual Orientation Not on file Last Filed Vital Signs Vital Sign Reading Time Taken Comments Blood Pressure 126/48 06/14/2024 10:21 AM EDT Pulse 69 06/14/2024 10:21 AM EDT Temperature - - Respiratory Rate - - Oxygen Saturation 99% 06/14/2024 10:21 AM EDT Inhaled Oxygen Concentration - - Weight 68.8 kg (151 lb 9.6 oz) 06/14/2024 10:21 AM EDT Height 157.5 cm (5' 2 ) 06/14/2024 10:21 AM EDT Body Mass Index 27.73 06/14/2024 10:21 AM EDT Plan of Treatment Upcoming Encounters Date Type Department Care Team (Late st Contact Info) Description 07/22/2025 9:40 AM EDT Office Visit [facility] [address] [place] [address] Shani Rockwell MD [address] [place] [phone] [email or web address] Health Maintenance Due Date Last Done Comments DEPRESSION SCREENING 1951 PNEUMOCOCCAL VACCINES (50+ years) (1 of 2 - PCV) 1958 ZOSTER VACCINES (1 of 2) 1989 OSTEOPOROSIS SCREENING INITI AL (ONE-TIME) 2004 RSV VACCINE (1 - 1-dose 75+ series) 2014 DIABETIC EYE EXAM 11/27/2023 COVID-19 VACCINE (1 - 2023-2 5 season) 2024 HEMOGLOBIN A1C 09/14/2024 06/14/2024, 03/10/2024, 10/09/2023 BLOOD PRESSURE 12/15/2024 06/14/2024 CREATININE LEVEL 06/14/2025 06/14/2024, 03/10/2024 POTASSIUM LEVEL 06/14/2025 06/14/2024, 03/10/2024 Adult Td,Tdap Booster 11/18/2029 11/18/2019 HEPATITIS A VACCINES Aged Out No long er eligible based on patient's age to complete this topic HIB VACCINES Aged Out No longer eligi ble based on patient's age to complete this topic MENINGOCOCCAL VACCINES (ACWY) Aged Out No longer eligible based on patient's age to complete this topic MENINGOCOCCAL VACCINES (B) Aged Out N o longer eligible based on patient's age to complete this topic Medical Devices Not on file Procedures Procedure Name Priority Date/Time Associated Diagnosis Comments HEMOGLOBIN A1C Routine 06/14/2024 11:12 AM EDT Type 2 diabetes mellitus with peripheral neuropathy COMPREHENSIVE METABOLIC PANEL Routine 06/14/2024 11:12 AM EDT Type 2 diabetes mellitus with peripheral neuropathy from Last 3 Months or Most Recently Relevant to Health Maintenance Results * (ABNORMAL) Comprehensive metabolic panel (06/14/2024 11:12 AM EDT) SODIUM 141 133 - 146 mmol/L [facility] POTASSIUM 4.2 3.3 - 5.1 mmol/L [facility] CHLORIDE 105 96 - 108 mmol/L [facility] CO2 21 21 - 35 mmol/L [facility] BUN 24(H) 6 - 19 mg/dL [facility] CREATININE 1.10 0.5 - 1.5 mg/dL [facility] GLUCOSE 211(H) 70 - 99 mg/dL [facility] ALBUMIN 4.0 3.9 - 4.8 g/dL [facility] TOTAL PROTEIN 7.8 6.5 - 8.0 g/dL [facility] CALCIUM 9.3 8.4 - 10.3 mg/dL [facility] ALKALINE PHOSPHATASE 94 39 - 117 U/L [facility] TOTAL BILIRUBIN 0.4 0.0 - 1.2 mg/dL [facility] AST 22 0 - 37 U/L [facility] ALT 15 0 - 40 U/L [facility] GLOBULIN 3.8 1 - 4.8 g/dL [facility] EGFR 50(L) >59 mL/min/1.7 3m2 [facility] Comment:Estimated glomerular filtration rate calculated using the CKD-EPI refit equation. ANION GAP 19 10 - 20 mmol/L [facility] Blood 06/14/2024 11:1 2 AM EDT 06/14/2024 11:14 AM EDT us Gillian Cote MD LAB BLOOD ORDERABLES Final Res ult [address] [id number] * (ABNORMAL) Hemoglobin A1c (06/14/2024 11:12 AM EDT) HEMOGLOBIN A1C 9.1(H) 4.3 - 5.8 % [facility] Blood 06/14/2024 11:1 2 AM EDT 06/14/2024 11:13 AM EDT us Gillian Cote MD LAB BLOOD ORDERABLES Final Res ult [address] [address] from Last 3 Months or Most Recently Relevant to Health Maintenance [place] [address] [place] [address] [employer] [place] [phone] [employer] MEDICARE REPLACEMENT MEDICARE [place] [address] [place] [address] [employer] MEDICARE REPLACEMENT MEDICARE REPLACEMENT MEDICARE REPLACEMENT Care Teams Surgical Assist Relationship Specialty Start Date End Date Bob Ricks MD [address] [place] [address] [phone] PCP - General Internal Medicine 06/20/23 Additional Source Comments The information contained in this document represents components of the legal health record. It is not the complete legal health record.[facility]
--- OUTSIDE RECORDS SUMMARY | 2025-06-21 15:48 | XMS_ITS | Encounter Summary ---
Author Organization [employer] Address [address] [facility] 7t [place] [address] Care Team Providers Care Cook Apprentice Pastry Name Role Phone Bob Ricks MD Primary Care Prov ider Encounter Details Date Type Department Care Team ([facility] st Contact Info) Description 12/19/2023 Orders Only [facility] MED & PEDS [address] [place], [place] [phone] Bob Ricks MD [address] [place] [address] Social History Tobacco Use Types Packs/Day Years [...] Whole Blood 304(H) 60 - 115 mg/dL [facility] Comment:METER #: [id number] 5Testing performed in the Endocrinology Department [address] , [address], [facility]. 12/07/2024 11:1 3 AM EST 12/07/2024 11:17 AM EST us Generic External Data Provider LAB BLOOD ORDERAB LES Final Result [facility] [address] [place] [address] [phone] documented in this encounter Visit Diagnoses Not on filedocumented in this encounter Additional Health Concerns Assessment Noted Time PHQ-9 Depression Total Score: 6 02/08/20 23 10:49 AM EDT documented as of this encounter Care Teams Cook Apprentice Pastry Relationship Specialty Start Date End Date Bob Ricks MD [address] [place] [id number] PCP - General Internal Medicine 11/18/19 documented as of this encounter
--- OUTSIDE RECORDS SUMMARY | 2025-06-21 15:48 | XMS_ITS | Encounter Summary ---
Author Organization [employer] Address [address] [place] [address] 7 [place] [address] Care Team Providers Care Rn Clinical Research Name Role Phone Bob Ricks MD Primary Care Prov ider Reason for Visit * Reason Comments Med Refill Encounter Details Date Type Department Care Team ([facility] st Contact Info) Description 03/13/2023 Refill [facility] MED [facility] PEDS [address] [place], [place] [phone] Bob Ricks MD [address] [place] [address] Social History Tobacco Use Types Packs/Day Years [...] Noted Time PHQ-9 Depression Total Score: 6 04/14/20 23 10:49 AM EDT documented as of this encounter Care Teams Rn Clinical Research Relationship Specialty Start Date End Date Bob Ricks MD [address] [place] [phone] PCP - General Internal Medicine 11/18/19 documented as of this encounter
--- OUTSIDE RECORDS SUMMARY | 2025-06-21 15:48 | XMS_ITS | Encounter Summary ---
Author Organization [employer] Address [address] [place] [address] 7 [place] [address] Care Team Providers Care Academic Services Coordinator Name Role Phone Bob Ricks MD Primary Care Prov ider Reason for Visit * Reason Comments Med Refill Encounter Details Date Type Department Care Team ([facility] st Contact Info) Description 06/29/2023 Refill [facility] MED & PEDS [address] [place], [place] [phone] Bob Ricks MD [address] [place] [address] Social History Tobacco Use Types Packs/Day Years [...] documented as of this encounter Care Teams Academic Services Coordinator Relationship Specialty Start Date End Date Bob Ricks MD [address] [place] [address] PCP - General Internal Medicine 1/23/20 documented as of this encounter
--- OUTSIDE RECORDS SUMMARY | 2025-06-21 15:48 | XMS_ITS | Encounter Summary ---
Author Organization [employer] Address [address] [facility] 7 [place] [address] Care Team Providers Care Supervisor Lime Name Role Phone Bob Ricks MD Primary Care Prov ider Reason for Visit * Reason Comments Med Refill Encounter Details Date Type Department Care Team ([facility] st Contact Info) Description 10/18/2024 Refill [facility] [address] [place], [place] [phone] Bob Ricks MD [address] [place] [address] Primary hypertension Social History Tobacco Use Types [...] documented as of this encounter Care Teams Supervisor Lime Relationship Specialty Start Date End Date Bob Ricks MD [address] [place] [id number] PCP - General Internal Medicine 11/18/19 documented as of this encounter
--- OUTSIDE RECORDS SUMMARY | 2025-06-21 15:49 | XMS_ITS | Clinical Summary ---
Author Organization [employer] Address [address] [facility] [address] [place] [address] Care Team Providers Care Tank Shop Supervisor Name Role Phone Bob Ricks MD Primary Care Prov ider Allergies No known active allergies Medications acetaminophen (Tylenol 8 Hour) 650 MG ER tablet Take 2 tablets by mouth every 8 (eight) hours. Active Calcium Carbonate-Vitamin D (Oyster Shell Calcium/D) 500-5 MG-MCG tablet Take 1 tablet by mouth in the morning. 0 Active cyanocobalamin (Vitamin B-12) 500 MCG tablet Take 1 tablet by mouth in the morning. Active fluticasone (Flonase Allergy Relief) 50 MCG/ACT nasal spray Administer 1-2 sprays into affected nostril(s) in the morning. 2 Active montelukast (Singulair) 10 MG tablet Take 1 tablet by mouth in the morning. 2 Active Multiple Vitamin (Multi-Vitamin) tablet Take 1 tablet by mouth in the morning. Active primidone (Mysoline) 50 MG tablet take 1/2 tablet by mouth at bedtime and increase weekly to 2 tablets at bedtime 2 Active loratadine (Claritin) 10 MG tablet TAKE 1 TABLET BY MOUTH EVERY DAY 90 tablet 4 Active fluticasone-salme terol (Advair HFA) 230-21 MCG/ACT inhalerIndication s:Moderate persistent asthma without complication INHALE 2 PUFFS BY MOUTH TWICE DAILY IN THE MORNING AND IN THE EVENING 12 g 3 5 Active atorvastatin (Lipitor) 10 MG tablet TAKE 1 TABLET(10 MG) BY MOUTH IN THE MORNING 90 tablet 3 5 Active albuterol 108 (90 Base) MCG/ACT inhaler INHALE 2 PUFFS INTO THE LUNGS EVERY 4 TO 6 HOURS NEEDED 8.5 g 1 5 Active lisinopril 20 MG tabletIndications :Primary hypertension TAKE 1 TABLET(20 MG) BY MOUTH DAILY 90 tablet 5 Active aspirin 81 MG chewable tabletIndications :Primary hypertension CHEW AND SWALLOW 1 TABLET(81 MG) BY MOUTH IN THE MORNING 90 tablet 1 5 Active dilTIAZem CD (Cardizem CD) 120 MG 24 hr capsule TAKE 1 CAPSULE BY MOUTH EVERY DAY 90 capsule 1 5 Active ferrous sulfate (FeroSul) 325 (65 Fe) MG tabletIndications :Iron deficiency TAKE 1 TABLET(325 MG) BY MOUTH IN THE MORNING 90 tablet 1 5 Active mirtazapine (Remeron) 15 MG tablet TAKE 1 TABLET BY MOUTH AT BEDTIME 90 tablet 1 5 Active omeprazole (PriLOSEC) [address] capsuleIndication s:Gastroesophagea l reflux disease without esophagitis TAKE 1 CAPSULE BY MOUTH IN THE MORNING 90 capsule 1 5 Active Active Problems Problem Noted Date Diagnosed Date [...] Date Type Department Care Team Description 06/07/2025 1:30 PM EDT Telemedicine [facility] [address] [place] [address] Bob Ricks MD 06/07/2025 Travel 05/10/2025 Telephone [facility] [address] [place] [address] Bob Ricks MD Chart Prep 05/03/2025 Telephone [facility] [address] [place] [address] Bob Ricks MD Med Refill 05/03/2025 Refill [facility] [address] [place] [address] Marianna Diana MD Primary hypertension; Iron deficiency; Gastroesophageal reflux disease without esophagitis 04/30/2025 Refill [facility] [address] [place] [address] Bob Ricks MD Gastroesophageal reflux disease without esophagitis 04/24/2025 Refill [facility] [address] [place] [address] Maria Elena Castro MD Primary hypertension 04/12/2025 Refill [facility] [address] [place] [address] Bob Ricks MD 03/30/2025 Refill [facility] [address] [place] [address] Bob Ricks MD 03/24/2025 Orders Only GENERIC EXTERNAL DATA DEPARTMENT Provider, Generic External Data from Last 3 Months Immunizations Immunization Administration Dates Next Due Influenza High-dose Quadriva lent Preservative Free 10/09/2023,08/15/2022,08/17/2021 Influenza, High Dose Seasona l, Preservative Free 11/18/2019 Moderna Covid-19 Vaccine 12+ 10/23/2021,01/05/20 21,12/08/2020 Pneumococcal Conjugate PCV 13 09/15/2020 Pneumococcal Conjugate PCV 20 10/09/2023 Tdap 11/18/2019 Zoster, Recombinant 08/15/2022 Social History Tobacco Use Types Packs/Day Years Used Date Smoking Tobacco: Former Cigarettes 1 1954 Smokeless Tobacco: Never Alcohol Use Standard [...] Sign Reading Time Taken Comments Blood Pressure 106/58 06/07/2025 2:00 PM EDT Pulse 72 06/07/2025 2:00 PM EDT Temperature 37.1 C (98.7 F) 10/09/2023 10:47 AM EST Respiratory Rate 16 10/09/2023 10:47 AM EST [...] Vaccine ( season) 2024 10/23/2021, 01/04/2021, 12/08/2020 Diabetes: Hemoglobin A1C 09/14/2024 024, 03/10/2024, 10/09/2023, Additional history exists Diabetes: Foot Exam 10/09/2024 10/09/2023, 10/09/2023, 10/09/2023, Additional history exists Lipid Panel 10/09/2024 10/09/2023, 0603/2023, 08/15/2022, Additional history exists Tobacco Screening 03/23/2025 03/23/2024 Influenza Vaccine (#1) 2025 3, 08/15/2022, 08/17/2021, Additional history exists DTaP/Tdap/Td Vaccines (2 - Td or Tdap) [...] Associated Diagnosis Comments GLUCOSE, WHOLE BLOOD Routine 2025 3:10 PM EDT GLUCOSE, WHOLE BLOOD Routine 03/24/2025 10:54 AM EDT LIPID PANEL, STANDARD Routine 10/09/2023 11:46 AM EST Type 2 diabetes mellitus with hyperglycemia, with long-term current use of insulin ([facility]) POCT GLYCATED HEMOGLOBIN, TOTAL Routine 10/09/2023 10:49 AM EST Type 2 diabetes mellitus with hyperglycemia, with long-term current use of insulin ([facility]) ALBUMIN, RANDOM URINE W/O CREATININE Routine 04/21/2023 10:58 AM EDT from Last 3 Months or Most Recently Relevant to Health Maintenance Results * (ABNORMAL) Glucose, Whole Blood (2025 3:10 PM EDT) Only the most recent of2 resultswithin the time period is included. Glucose, Whole Blood 303(H) 60 - 115 mg/dL [facility] Comment:METER #: [id number] 0Testing performed in the Endocrinology Department [address] , [address], [facility]. 2025 3:10 PM EDT 2025 3:14 PM EDT us Generic External Data Provider LAB BLOOD ORDERAB LES Final Result [facility] [address] [place] [address] [phone] * Lipid Panel, Standard (10/09/2023 11:46 AM EST) Triglycerides 69 <150 mg/dL [facility] Comment:Desirable Triglyceri de: less than 150 mg/dLBorderline High Triglyceride 150-199 mg/dLHigh Triglyceride: 200-499 mg/dLVery High Triglyceride: greater than or equal to 5OO mg/dL Cholesterol 124 <200 mg/dL [facility] Comment:Desirable Cholestero l: less than 200 mg/dLBorderline High Cholesterol: 200-239 mg/dLHigh Cholesterol: greater than 239 mg/dL LDL Cholesterol Calculated 61 <100 mg/dL [facility] Comment:Desirable LDL: less than 100 mg/dLNear Optimal/Above Optimal LDL: 110- 129 mg/dLBorderline High LDL: 130-159 mg/dLHigh LDL: 160-189 mg/dLVery High LDL: greater than or equal to 190 mg/dL HDL Cholesterol 50 >40 mg/dL [facility] Comment:Desirable HDL: great er than 40 mg/dL Note: This HDL assay may give artificially low results in patients with liver disease. Blood Venous blood specimen / Unknown 10/09/2023 11:46 AM EST 10/09/2023 2:44 PM EST us Bob Lafleur MD LAB BLOOD ORDERABL ES Final Result [facility] [address] [place] [address] [phone] * (ABNORMAL) POCT A1C (10/09/2023 10:49 AM EST) Hemoglobin A1C 8.3(A) 4.0 - 6.0 % QC Media Lot # [id number] Lot# Expiration Date Blood 10/09/2023 10:4 9 AM EST Bob Lafleur MD POINT OF CARE TEST ENTER/EDIT ORDERABLES Final Result * Albumin, Random Urine W/O Creatinine (04/21/2023 10:58 AM EDT) Albumin, Urine 8.2 See Note: mg/dL [employer] Comment: Reference Range: Reference Range Not established [facility] [employer] Comment: The ADA defines abnormalities in albumin excretion as follows: Albuminuria Category Result (mcg/mg creatinine) Normal to Mildly increased <30 Moderately increased 30-299 Severely increased > OR = 300 The ADA recommends that at least two of three specimens collected within a 3-6 month period be abnormal before considering a patient to be within a diagnostic category. 04/21/2023 10:5 8 AM EDT 04/21/2023 10:59 AM EDT Bob Lafleur MD LAB URINE ORDERABL ES Final Result [facility] [address] [place] [address] [employer] [address] [place] [phone] from Last 3 Months or Most Recently Relevant to Health Maintenance Insurance [employer] HMO-SNP [facility] STANDARD Care Teams Tank Shop Supervisor Relationship Specialty Start Date End Date Bob Ricks MD [address] [place] [id number] PCP - General Internal Medicine 11/18/19
== END 2025-06-21 15:33 | disposition home or self-care (01) ==
LOC: HO.ENCR 14:54
PROVIDERS: PCP Internal Medicine; Visit Provider Physician Assistant Medical
DX: E11.42 Type 2 diabetes mellitus with diabetic polyneuropathy (principal); Z79.4 Long term (current) use of insulin; N18.32 Chronic kidney disease, stage 3b; I10 Essential (primary) hypertension; E78.00 Pure hypercholesterolemia, unspecified; Z13.9 Encounter for screening, unspecified

== ENCOUNTER → 2025-06-21 14:54 | Outpatient (BNVA) | payer MEDICARE, SELFPAY | PROVIDERS: PCP Internal Medicine; Visit Provider Physician Assistant Medical | DX: E11.42 Type 2 diabetes mellitus with diabetic polyneuropathy (principal); Z79.4 Long term (current) use of insulin; N18.32 Chronic kidney disease, stage 3b; I10 Essential (primary) hypertension; E78.00 Pure hypercholesterolemia, unspecified | CPT/HCPCS: 82947; 83036; 99212 ==